=== PATIENT | female | born 1965 | race Caucasian/White ===

== ENCOUNTER → 2024-04-14 06:24 | Day surgery (SDC) | payer MEDICARE, SELFPAY ==
--- NOTE | 2024-04-13 14:18 | PTCARENOTE ---
Abnormal EKG reviewed by Dr. Aguilar, no further action requested.
[2024-04-14] VITALS (8 sets, daily range): BP systolic 104–110; BP diastolic 57–75
[2024-04-14] MEDS: NORMOSOL-R 1000 IV (08:11)
== END ==
LOC: SDS 06:24
PROVIDERS: ATTENDING PHYSICIAN Urology
DX: N31.9 Neuromuscular dysfunction of bladder, unspecified (principal); R33.9 Retention of urine, unspecified
CPT/HCPCS: 51040

== ENCOUNTER 2024-11-19 06:26 | Day surgery (SDC) | payer MEDICARE, OTHER, SELFPAY ==
--- NOTE | 2024-11-18 13:11 | PTCARENOTE ---
Patients unconfirmed 11/16/[address] Walter- no additional interventions required
[2024-11-19 09:01] VITALS: BP 126/66
[2024-11-19] MEDS: NORMOSOL-R/PLASMALYTE-A 1000 IV (09:24)
[2024-11-19 09:31] VITALS: BMI 33.1
[2024-11-19 09:32] VITALS: BMI 33.1
[2024-11-19 09:35] VITALS: BMI 33.1
[2024-11-19 12:39] VITALS: BP 93/60
[2024-11-19 12:40] VITALS: BP 126/66
[2024-11-19 12:45] VITALS: BP 101/63
[2024-11-19 13:00] VITALS: BP 104/64
[2024-11-19 13:10] VITALS: BP 104/67
== END 2024-11-19 14:00 | disposition home or self-care (01) ==
LOC: SDS 06:26
PROVIDERS: ATTENDING PHYSICIAN Urology
DX: N31.9 Neuromuscular dysfunction of bladder, unspecified (principal)
CPT/HCPCS: 51040

== ENCOUNTER 2025-01-17 15:47 | Emergency (ER) | payer MEDICARE, SELFPAY ==
[2025-01-17 15:50] VITALS: BMI 37.6
[2025-01-17 15:57] VITALS: BP 115/81
[2025-01-17 16:00] VITALS: BP 126/81
--- NOTE | 2025-01-17 16:53 | ED.GENMED ---
History of Present Illness
General
Chief Complaint: Catheter/Tube Problem
Source: patient and ambulance crew
Exam Limitations: none
Time Seen by Provider: 01/17/25 16:23
Nursing documentation reviewed up to this point in time: agreed with
History of Present Illness
History of Present Illness:
60-year-old female presents emergency ferment due to dislodged suprapubic Patrick catheter. It is in place due to neurogenic bladder from multiple sclerosis.
Past History
Past History
ED Past Medical History: Renal failure, Other (Multiple sclerosis) and Other (AIDS)
ED Past Surgical History: Urological (Suprapubic Patrick catheter)
Social History
Tobacco: Non-smoker
Alcohol: None
Drug: None
Living: long-term
Review of Systems
Review of Systems
Allergies reviewed?: Yes
All Other Systems: Not applicable
Constitutional: Reports no symptoms
EENT: Reports no symptoms
Respiratory: Reports no symptoms
Cardiac: Reports no symptoms
ABD/GI: Reports no symptoms
: Reports other (Dislodged suprapubic Patrick catheter)
Musculoskeletal: Reports no symptoms
Skin: Reports no symptoms
Neurological: Reports no symptoms
Endocrine: Reports no symptoms
Hematologic/Lymphatic: Reports no symptoms
Psychiatric: Reports no symptoms
Phy Exam
Physical Exam
Physical Exam:
Physical Exam
General: no apparent distress, not acutely ill
Neck: supple. no meningeal signs. normal posterior pharynx
Heart: s1/s2 regular rate and rhythm, no murmur. equal radial
pulses.
HEENT: Pupils equal round reactive to light, EOMI
Lungs: no acute respiratory distress. clear bilaterally
Abdomen/: normal bowel sounds. not tender. no CVAT, suprapubic Patrick catheter in place, and end of catheter protruding from urethra
Neuro: alert and oriented. no focal neurological deficits cranial nerves II through XII intact
Skin: no rash
Psychiatric: well kept. interactive and cooperative
Extremities: no edema. no calf tenderness. negative homans. good distal pulses
Course
Vital Signs
Initial and Last Documented VS:
Initial Vital Signs
Temp Pulse Resp BP Pulse Ox
98.2 F 91 17 115/81 96
01/17/25 15:57 01/17/25 15:57 01/17/25 15:57 01/17/25 15:57 01/17/25 15:57
Last Documented Vital Signs
Temp Pulse Resp BP Pulse Ox
98.2 F 91 17 126/81 98
01/17/25 15:57 01/17/25 15:57 01/17/25 15:57 01/17/25 16:00 01/17/25 16:45
Procedures
Urinary Catheter
Procedure completed by: Dr. Garcia/Nakia Day
Type of urinary catheter: other (Suprapubic)
Catheter size (azeri): 18
Urine description: yellow
Urine output (ml): 50
MDM/Problems Addressed
Differential Diagnosis Includes:
Dysfunctional suprapubic catheter, UTI
MDM/Problems Addressed:
60-year-old female with displaced suprapubic Patrick catheter, replaced in ED. Discussed with Dr. Bañuelos, who recommends replacing.
Chronic conditions affecting care: Neurological disorder and Kidney disease
Acute Exacerbation and/or Progression of Chronic Illness: Neurological disorder and Kidney disease
*Pulse Oximetry
Patient hypoxic: no
*Critical Care Note
Total Time (30-74mins, 75-104mins- exclusive of procedures): Not Applicable
Data Reviewed
Review of Other/Old Records Reveals: Operative Reports (October 2024, replacement of suprapubic Patrick catheter by Dr. Hobson)
Source: records
Patient Management
Social determinants of health affecting care: Living situation and Strong social support
Discussion with other providers: Assessment Technician (Dr. Hobson, urologist)
Escalation/DeEscalation of care consider admission/obs:
Admit not indicated
ED Attending Note
-
Portions of this chart may have been created with voice recognition software.� Occasional wrong word or��sound alike� substitutions may have occurred due to the inherent limitations of voice recognition software.
Discharge Plan
Departure
Patient Disposition: Retirement/SNF
Date of Disposition: 01/17/25
Time of Disposition: 17:01
Patient with high blood pressure during this ER visit?: Yes
Condition: Good
Discharge Problem:
Suprapubic catheter dysfunction
Instructions: How to Care for Your Patrick Catheter, BLOOD PRESSURE
Prescriptions:
No Action
multivitamin Tablet
1 tab PO DAILY
loperamide [Imodium] 2 mg Capsule
2 mg PO Q8H PRN (Reason: diarrhea)
magnesium hydroxide [Milk of Magnesia] 400 mg/5 mL Suspension
30 ml PO PRN PRN (Reason: constipation)
Rx Instructions:
if no BM for 3 days
bisacodyl [Dulcolax (bisacodyl)] 10 mg Suppository
10 mg MI DAILY PRN (Reason: constipation)
Rx Instructions:
If milk of magnesia is ineffective
Fleet Enema 19-7 gram/118 mL Enema
118 ml MI ONCE
Rx Instructions:
If dulcolax ineffective
bumetanide 1 mg Tablet
1 mg PO DAILY
acetaminophen 325 mg Capsule
650 mg PO Q6H PRN (Reason: fever, pain)
Senna Plus 8.6-50 mg Capsule
1 tab-cap PO BID PRN (Reason: constipation)
Activity Restrictions/Additional Instructions:
Follow-up with primary care as needed. Return for any concerns.
Interventions
Interventions:
*Risk Screen - Suicide Last Done: 01/17/25 15:51
*General Assessment Last Done: 01/17/25 15:51
*Neglect/Abuse Screening Last Done: 01/17/25 15:51
*ED- Fall Risk Assessment Last Done: 01/17/25 15:51
*ED COVID-19 Vaccine History Last Done: 01/17/25 15:51
JV-Iqzhar-Elpvahhdjv Assessment Last Done: 01/17/25 15:59
ED-Female Genitourinary Assessment Last Done: 01/17/25 15:59
Discharge Date and Time
Print Language: THAI
--- NOTE | 2025-01-17 16:59 | PTCARENOTE ---
18F 10cc Suprapubic catheter placed by Dr. Garcia and Nakia BAUTISTA. Pt tolerated procedure without difficulty. New stat lock applied. Catheter is draining clear yellow urine. Will continue to monitor.
[2025-01-17 18:20] VITALS: BP 128/76
== END 2025-01-17 18:35 ==
LOC: EMR 15:47
PROVIDERS: EMERGENCY PHYSICIAN Emergency Medicine; FAMILY PHYSICIAN Internal Medicine
DX: T83.020A Displacement of cystostomy catheter, initial encounter (principal); Y73.1 Therapeutic (nonsurgical) and rehabilitative gastroenterology and urology devices associated with adverse incidents; Y84.6 Urinary catheterization as the cause of abnormal reaction of the patient, or of later complication, without mention of misadventure at the time of the procedure; N31.9 Neuromuscular dysfunction of bladder, unspecified
CPT/HCPCS: 99283; 51705

== ENCOUNTER 2025-05-24 15:19 | Inpatient (IN) | payer MEDICARE, OTHER, SELFPAY ==
[2025-05-24] VITALS (8 sets, daily range): BP systolic 117–146; BP diastolic 75–97; BMI 34.7; BMI 32.2
[2025-05-24 11:42] LABS: Hematocrit 40.6 % (37.0-47.0); Hemoglobin 13.7 g/dL (12.0-16.0); Mean Corp Hgb Conc. 33.7 g/dL (33.0-37.0); Mean Corpuscular Volume 86.8 fL (81.0-99.0); Nucleated Red Blood Cells % 0 %; Platelet Count 818 10^3/uL (130-400); Red Cell Dist. Width 13.7 % (11.5-14.5)
[2025-05-24 11:51] LABS: ALT (SGPT) 26 U/L (0-35); AST (SGOT) 21 U/L (14-36); Albumin 3.8 g/dl (3.5-5.0); Alkaline Phosphatase 186 U/L (38-126); Blood Urea Nitrogen 16 mg/dl (7-17); Calcium 8.9 mg/dl (8.4-10.2); Carbon Dioxide 34 mmol/L (22-30); Chloride 96 mmol/L (98-107); Estimated Creatinine Clearance 91 ml/min; Glucose 123 mg/dl (70-99); Potassium 3.4 mmol/L (3.5-5.1); Sodium 137 mmol/L (135-145); Total Protein 7.2 g/dl (6.3-8.2); eGFR > 60.00
[2025-05-24 12:34] LABS: Urine Character Clear (Clear)
[2025-05-24 12:46] LABS: Urine Red Blood Cell 0-2 /HPF (0-2); Urine White Cell 0-2 /HPF (0-5)
--- NOTE | 2025-05-24 12:54 | ED.GENMED ---
History of Present Illness
General
Chief Complaint: Catheter/Tube Problem
Source: patient and family (Brother at bedside)
Time Seen by Provider: 05/24/25 12:17
Nursing documentation reviewed up to this point in time: agreed with
History of Present Illness
History of Present Illness:
60-year-old female with history of MS residing in [facility], cognitive impairment, HTN, neuromuscular dysfunction of bladder, per brother at bedside patient had a suprapubic catheter placed approximately 3 weeks ago, it kept
getting clogged and leaking around it, the area around it became cellulitic and she was started on cefpodoxime proxetil 100 mg twice a day for 7 days starting 05/21 .The red area is spreading so sent here for evaluation.
Past History
Past History
ED Past Medical History: Renal failure, Other (Multiple sclerosis) and Other (AIDS)
ED Past Surgical History: Urological (Suprapubic Patrick catheter)
Social History
Tobacco: Non-smoker
Alcohol: None
Drug: None
Living: care home
Review of Systems
Review of Systems
Allergies reviewed?: Yes
All Other Systems: ROS reviewed and negative except as documented in HPI and ROS
Constitutional: Denies fever
ABD/GI: Denies abdominal pain or nausea
: Reports other (Patrick catheter)
Skin: Reports other (Redness abdominal wall, drainage from previous suprapubic catheter site)
Phy Exam
Physical Exam
Physical Exam:
GENERAL: No acute distress. A&Ox3.
CONSTITUTIONAL: Afebrile.
EYES: clear, conjunctivae normal
ENMT: moist mucus membranes, Pharynx nl
RESPIRATORY: Regular respirations, nonlabored, lungs clear.
CARDIOVASCULAR: Regular rate and rhythm, no murmurs, no rubs.
GI: Soft, nontender, normal BS
MUSCULOSKELETAL: Moves with ease. Well perfused.
SKIN: Warm, dry, pink. Lower abdominal pannus with spreading erythema, in the fold of the pannus is a 2 cm wide hole from previous suprapubic catheter, there is greenish-yellow drainage on the dressing. Immediately surrounding the opening is
darker red erythema.
PSYCH: Normal mood and affect. Well kept, interactive and appropriate
NEUROLOGIC: Awake, alert and oriented. Forgetful, speech clear
Sepsis
Sepsis Screening
Sepsis Assessment: Sepsis Ruled Out
Sepsis Screen
Sepsis Screen: Sepsis Ruled Out
Date: 05/25/25
Time: 11:45
Course
Orders/Labs/Results
Orders:
Orders
05/24/25 Breakfast
Regular
At Your Request: Limited Participation
05/24/25 11:05
Cardiac Monitoring- Treatment ONCE
IV Insert/Care/Rem.- Treatment PRN
05/24/25 11:19
Blood Culture Q20M
[facility] Source: Blood/Venous
Specimen Description:
Comment: Urgent from separate sites. If patient screens positive for possible sepsis
Blood Culture Q20M
[facility] Source: Blood/Venous
Specimen Description:
Comment: Urgent from separate sites. If patient screens positive for possible sepsis
05/24/25 11:20
Complete Blood Count/With Diff Urgent
Comprehensive Metabolic Panel Urgent
05/24/25 11:21
Urinalysis Reflex To Culture Urgent
Date Specimen was Collected: 05/24/25
Time Specimen was Collected: 11:05
Urine Microscopic Reflex Cult Urgent
Urine Culture Urgent
[facility] Source: U
Specimen Description:
Date Specimen was Collected: 05/24/25
Time Specimen was Collected: 11:05
05/24/25 13:19
Vancomycin [Vancocin] 2,000 mg 0.9% Sodium Chloride 500 ml [Nss] 500 ml IV NOW
05/24/25 13:24
Troponin I Urgent
Wound Culture [Wound/Abscess/Other Culture] Urgent
[facility] Source: Abdomen
Specimen Description:
Date Specimen was Collected: 05/24/25
Time Specimen was Collected: 13:21
05/24/25 14:31
UROLOGY CONSULT Routine
Consulting Provider: Schuyler Cisneros
Was physician already notified: Yes
Potassium Chloride [KCl] 20 meq PO NOW STA
05/24/25 14:35
Admit/Transfer Patient As Directed
Co-Sign Provider:
Level of Care: Inpatient admission
Assign to:: Medical/Surgical
Physician / Group: [facility]
Diagnosis: Abdominal Wall Cellulitis
Reason for Hospitalization: IV Abx
Expected length of stay greater than two midnights?: Yes
ELOS- Estimated Length of Stay in days: 3
I certify the patient meets the requirements for IP care: Yes
05/24/25 14:36
PRN Pain Medication Management As Directed
May give lesser potent ordered pain med per pt: Yes
preference::
Protocol:: Medication orders for pain may be administered in a
manner that supports deferring to patient preference
when the pt is:
- Requesting an ordered lesser potent pain medication.
Least to most potent pain medications are defined
as: acetaminophen < NSAID < tramadol < opioids
(morphine, oxycodone, hydromorphone).
- Requesting a lesser dose of the same medication IF
ORDERED.
- Requesting a less intrusive route of administration
if both routes are prescribed by the provider (PO <
IV).
05/24/25 14:37
Code Status As Directed
Resuscitation Status: Full Code
05/24/25 16:52
Acetaminophen [Tylenol] 650 mg PO Q6HPRN PRN mild pain/fever mild pain/fever
VANCOMYCIN Pharmacy to Dose [VANCOCIN Pharmacy to Dose] 1 each Pharmacy To Prepare [Call Pharmacy To Prepare] 0 ml IV PER PROTOCOL
05/24/25 16:52
WOUND/OSTOMY CONSULT Routine
Reason for Consult: suprapubic catheter site wound
Activity As Directed
Activity Level: As Tolerated
Patrick Catheter [Catheter- Indwelling] As Directed
Reason for insertion: Chronic Patrick on Admit
Vital Signs As Directed
Frequency: Per unit guidelines
Weight As Directed
Frequency: Daily
DX Deep Vein Thrombosis Video Routine
05/24/25 17:11
MRSA Screen Routine
[facility] Source: Nose
Specimen Description:
05/24/25 18:00
Cefepime HCl [Maxipime] 1,000 mg IV Q6H
Enoxaparin Sodium [Lovenox] 40 mg SC QPM
Potassium Chloride [KCl] 20 meq PO QPM
05/25/25 07:33
Basic Metabolic Panel IN AM
Complete Blood Count/No Diff IN AM
Hgba1c [Glycohemoglobin (HgbA1c)] IN AM
Magnesium IN AM
05/25/25 08:00
Bumetanide [Bumex] 2 mg PO DAILY
Saccharomyces Boulardii [Florastor] 250 mg PO DAILY
Abnormal Lab Results
05/24/25 05/24/25
11:20 11:21
WBC 11.6 H 10^3/uL
(4.8-10.8)
Plt Count 818 H 10^3/uL
(130-400)
Abs Immat Gran (auto) 0.1 H 10^3/uL
(0-0.05)
Absolute Neuts (auto) 8.2 H 10^3/uL
(1.4-6.5)
Absolute Monos (auto) 1.2 H 10^3/uL
(0.1-0.6)
Immature Gran % 0.7 H %
(0-0.5)
Lymphocytes % 17.6 L %
(20.5-51.1)
Monocytes % 10.0 H %
(1.7-9.3)
Potassium 3.4 L mmol/L
(3.5-5.1)
Chloride 96 L mmol/L
(98-107)
Carbon Dioxide 34 H mmol/L
(22-30)
Glucose 123 H mg/dl
(70-99)
Alkaline Phosphatase 186 H U/L
(38-126)
Ur Occult Blood Reflex 3+ A
(Negative)
Leukocyte Esterase Rfl 1+ A
(Negative)
Urine Bacteria (Reflex) Few A
(Negative)
Urine Albumin (Reflex) 2+ A
(Neg - Trace)
05/24/25 11:20
05/24/25 11:20
Vital Signs
Initial and Last Documented VS:
Initial Vital Signs
Temp Pulse Resp BP Pulse Ox
98.2 F 94 22 128/85 98
05/24/25 10:51 05/24/25 10:51 05/24/25 10:51 05/24/25 10:51 05/24/25 10:51
Last Documented Vital Signs
Temp Pulse Resp BP Pulse Ox
98.3 F 77 18 108/61 98
05/25/25 08:00 05/25/25 08:00 05/25/25 08:00 05/25/25 08:00 05/25/25 08:00
MDM/Problems Addressed
Differential Diagnosis Includes:
Cellulitis abdominal wall, UTI
MDM/Problems Addressed:
60-year-old female with history of MS residing in [facility], cognitive impairment, HTN, ESBL, resistant to macrolides, resistance to aminoglycosides all noted in her antibiotic resistance UTI panel from the care home,
neuromuscular dysfunction of bladder, per brother at bedside patient had a suprapubic catheter placed approximately 3 weeks ago, it kept getting clogged and leaking around it, the area around it became cellulitic and she was started on cefpodoxime
proxetil 100 mg twice a day for 7 days starting 05/21 .The red area is spreading so sent here for evaluation.
Afebrile, NAD
No abdominal tenderness
Open abdominal wound to lower mid abdomen with surrounding erythema/cellulitis
Patrick draining clear bel urine
1:00 PM:
CBC: WBC 11.6, down from 17.55 on 05/18 and her transfer care home records.
CMP: No clinically significant abnormality
UA negative
Plan: Admit: Cellulitis abdominal wall, IV antibiotics
Hospitalist notified of admission
*Pulse Oximetry
SaO2: 95
Oxygen Mode of Delivery: Room air
Patient hypoxic: no
*Critical Care Note
Total Time (30-74mins, 75-104mins- exclusive of procedures): Not Applicable
ED Attending Note
-
Portions of this chart may have been created with voice recognition software.� Occasional wrong word or��sound alike� substitutions may have occurred due to the inherent limitations of voice recognition software.
Discharge Plan
Departure
Patient Disposition: Admit
Date of Disposition: 05/24/25
Time of Disposition: 13:18
Admit to: Med/Surg
Presentation/result/management discussed w/ accepting MD/DO: Hospitalist
Condition: Fair
Discharge Problem:
Abdominal wall cellulitis
Interventions
Interventions:
*Risk Screen - Suicide Last Done: 05/24/25 16:54
*General Assessment Last Done: 05/24/25 10:59
*Neglect/Abuse Screening Last Done: 05/24/25 10:59
*ED- Fall Risk Assessment Last Done: 05/24/25 10:59
*ED COVID-19 Vaccine History Last Done: 05/24/25 16:54
*Nursing Disposition Last Done: 05/24/25 16:42
IH-Kpwugl-Ipzibohqba Assessment Last Done: 05/24/25 11:40
ED-Female Genitourinary Assessment Last Done: 05/24/25 11:32
Discharge Date and Time
Discharge Date/Time: 05/24/25 16:44
[2025-05-24] MEDS: VANCOCIN 540 MG IV (13:37)
[2025-05-24 14:05] LABS: Troponin I < 0.012 ng/ml
--- NOTE | 2025-05-24 14:43 | HPS.HSE ---
Addendum entered and electronically signed by Darleen Marquis MD 05/24/25 17:12:
This is an addendum to H&P written by Diana Miranda on 05/24/2025. �Patient seen and examined independently with PA.
60-year-old female past medical history of normal pressure hydrocephalus, multiple sclerosis, neurogenic bladder, obesity, recent suprapubic catheter placed in October presenting with infection around suprapubic catheter site. �Suprapubic catheter
was removed 3 weeks ago due to infection and patient currently has Patrick catheter.
Started on cefpodoxime on 05/21 with worsening of symptoms.
Vital signs normal. �Labs show leukocytosis. �Potassium 3.4. �Urinalysis unremarkable.
Patient with infection at the site of prior suprapubic catheter placement. �Wound culture, blood cultures, vancomycin/cefepime. �Urology consulted. �Wound care consulted. �Potassium repletion.
Original Note:
Family Physician
-
Family Physician: Jose Owusu
Chief Complaint
-
Abdominal Redness
History of Present Illness
Patient is a 60 y/o female past medical history of NPH, MS, Neurogenic with chronic catheter and chronic lower extremity edema who presents with increased abdominal wall redness and drainage from prior catheter site. Patient had a suprapubic
catheter placed in October. Since that time it has been pulled out several times. More recently the catheter was becoming clogged and had increased drainage from around the catheter. About two weeks ago the suprapubic catheter was removed and a
Patrick cathteter was placed. About three days ago patient was started on oral antibiotics for an infection of the suprapubic catheter site. Despite oral antibiotics symptoms have worsened and she was sent to the [facility] for evaluation.
Patient denies any fevers, sweats or chills.
Medical History
Past Medical History
Past Medical History: Reports Other
Additional Past Medical History:
Normal Pressure Hydrocephalus
Multiple Sclerosis
Neurogenic Bladder s/p Suprapubic Catheter
Chronic Lower Extremity Edema
Obesity due to Excess Calories
Past Surgical History: Reports Other
Additional Past Surgical History:
Suprapubic Catheter
Social History
Tobacco: Non-smoker
Living: Skilled Nursing ([facility])
Family History
Family History: Not pertinent
Allergies / Home Medications
Allergies reflects when Allergies were last updated in [facility].
Home Medications with original date entered in [facility]
Allergy/Medication List:
Allergies
Allergy/AdvReac Type Severity Reaction Status Date / Time
amoxicillin Allergy Hives Verified 01/17/25 15:51
Home Medications
bisacodyl 10 mg rectal suppository (Dulcolax (bisacodyl)) 10 mg SC DAILYPRN PRN constipation 04/09/24
bumetanide 1 mg tablet 2 mg PO DAILY 04/09/24
loperamide 2 mg capsule 2 mg PO Q8HPRN PRN diarrhea 04/09/24
magnesium hydroxide 400 mg/5 mL oral suspension (Milk of Magnesia) 30 ml PO [id number] PRN constipation 04/09/24
sennosides 8.6 mg-docusate sodium 50 mg capsule (Senna Plus) 1 tab-cap PO BIDPRN PRN constipation 04/09/24
sodium phosphates 19 gram-7 gram/118 mL enema (Fleet Enema) 118 ml SC DAILYPRN PRN constipation 04/09/24
Saccharomyces boulardii 250 mg capsule (Florastor) 250 mg PO DAILY 05/24/25
acetaminophen 325 mg tablet (Tylenol) 650 mg PO Q6HPRN PRN mild pain 05/24/25
cefpodoxime 100 mg tablet 100 mg PO BID 05/24/25
potassium chloride 20 mEq tablet,extended release 20 meq PO QPM 05/24/25
Review of Systems
-
A 12 point ROS was completed and negative except as noted: Yes
Constitutional: Denies Fever or Chills
Respiratory: Denies Cough or Trouble Breathing
Cardiac: Denies Chest Pain or Palpitations
Physical Exam
Vital Signs
Vital Signs
Temp Pulse Resp BP Pulse Ox
98.2 F 98 23 117/92 97
05/24/25 10:51 05/24/25 13:30 05/24/25 13:30 05/24/25 13:00 05/24/25 13:30
Physical Exam
General: Comfortable and Conversant
HEENT: Anicteric and Moist mucous membranes
Respiratory: Clear and Non Labored Respirations
Cardiac: S1/S2 and Regular Rhythm; No Tachycardia
GI: Soft and Non Tender
Rectal: Deferred by Provider
Genito-urinary: Clear Urine, Patrick and Other (Large suprapubic catheter site with foul smelling drainage noted)
Musculoskeletal: No Clubbing and No Cyanosis
Skin: Other (Mild/ Moderate erythema of lower abdominal wall )
Neuro: Awake, Alert and Oriented
Psych: Calm
Laboratory Results
-
05/24/25 11:20
05/24/25 11:20
Laboratory Results
Total Bilirubin 0.6 mg/dl (0.2-1.3) 05/24/25 11:20
AST 21 U/L (14-36) 05/24/25 11:20
ALT 26 U/L (0-35) 05/24/25 11:20
Alkaline Phosphatase 186 U/L (38-126) H 05/24/25 11:20
Troponin I < 0.012 ng/ml 05/24/25 13:24
Data Reviewed
-
Lab Data: Labs Reviewed by me
Old Records: Reviewed
Impression/Plan
-
Abdominal Wall Cellulitis secondary to Non-Healing/Infected Suprapubic Catheter Site
-Await wound culture and blood culture
-Continue vancomycin and cefepime
-Consult wound care
Neurogenic Bladder
-Suprapubic catheter has been removed, and patient now with Patrick catheter
-Consult Urology
Multiple Sclerosis
-Patient resides at a longterm
-She receives an infusion at [facility] every six months (Last treatment February 23) though brother does not know the name of the medications
Chronic Lower Extremity Edema
-Continue Bumex and potassium supplement
DVT proph: Lovenox
Code Status: Full Code
[2025-05-24] MEDS: KCL 20 MEQ PO ×2 (14:54→18:25)
--- NOTE | 2025-05-24 17:05 | PTCARENOTE ---
05/24- Patient transferred and oriented to unit without issue. AAOX3 but slowed speech, forgetful. MedSurg. Suprapubic open wound malodorous, deep with burrowing, surrounding erythema and warmth to touch, actively draining serous and purulent
drainage. Cleansed with NSS; packed with sterile gauze and covered with ABD for time being until [facility] sanitarian inspector. Patient denies any current needs at this time.
--- NOTE | 2025-05-24 18:04 | W.PN.URO.CBU ---
Today's Communication / Plan
-
await ct scan but for now continured care
Assessment / Plan
-
area abscess r/out intraabdominal or pelvic extent.Ordered ct scan and continued packing and wound care and iv abs
Diagnosis
-
Date of Service: May 24, 2025
-
Patient Diagnosis:suprapbic abscess at site of sp tube remved
Post Op Day:
Subjective
-
no fevr chills no n/v
Objective
-
Vital Signs
Temp Pulse Resp BP Pulse Ox
97.2 F 99 20 119/82 99
05/24/25 16:55 05/24/25 16:55 05/24/25 16:55 05/24/25 16:55 05/24/25 17:05
Intake and Output
05/23/25 05/24/25 05/25/25
06:59 06:59 06:59
Output Total 200 / 200
Balance -200 / -200
Output:
Urine, Patrick 200 / 200
Laboratory Results
05/24/25 11:20
05/24/25 11:20
Review of Systems
-
Abdomen/GI: Other (foul smelling puriemt drainage from sp tube site)
: Difficulty Voiding
Physical Exam
-
General - well developed, well nourished, no acute distressnon txic
Chest - clear bilaterally
Abdomen - soft, non-tender, positive bowel sounds, no CVAT, no incisional pain or distentionbut finfger depth abscess cavity vcannot palpate abd or pelvic conthenst fascal intact to digital exam
Genitalia - normal
Rectal - normal
Skin - warm & dry with no rash
Neuro - AOx3, no motor deficits
Extremities - no clubbing, no cyanosis, no edema
Incision - clean, dry
Dressing - clean, dry, intact
Care Review
Data Reviewed
Discussed with: Nursing
--- NOTE | 2025-05-24 18:04 | PHA.VAN.IN ---
Assessment
- Assessment
Renal Function: Appears similar to baseline
Concomitant Antimicrobials: CEFEPIME
AUC Dosing Plan
- Dosing Variables
Dosing Weight (kg): 94.5
Dosing CrCl (ml/min): 89
Vd coefficient (L/kg): 0.7
- Empiric Dosing
Initial / Loading Dose: 2000 MG IV ~ 1330
Maintenance Regimen: 1250 MG IV Q12H
Estimated AUC (mcg*h/mL): 511
Estimated Peak (mcg*h/mL): 31
Estimated Trough (mcg/ml): 13.6
Estimated Half Life (H): 8.9
- Monitoring
No levels ordered at this time: Consider levels in a few days
Pharmacokinetics Vancomycin I
- -
Patient Age: 60
Patient Sex: Female
Vancomycin Day #: 1
Indication: Skin And Soft Tissue
Requesting Provider: Enrike De Jesus
Pertinent Antimicrobial Allergies:
Amoxicillin W. Hives reaction occured greater than 10 years ago.
Height / Weight:
Height 5 ft 7.5 in
Actual Weight 94.5 kg
Pertinent Past Medical History: patient had a suprapubic catheter placed approximately 3 weeks ago.
- Vital Signs / Lab Results
Temp Pulse Resp BP Pulse Ox
97.2 F 99 20 119/82 99
05/24/25 16:55 05/24/25 16:55 05/24/25 16:55 05/24/25 16:55 05/24/25 17:05
Lab Results - Hematology
05/24/25
11:20
WBC 11.6 H
Lab Results - Chemistry
05/24/25
11:20
BUN 16
Creatinine 0.8
Estimated Creat Clear 91
Albumin 3.8
Lab Results - Urine
05/24/25
11:21
Urine Nitrite (Reflex) Negative
Leukocyte Esterase Rfl 1+ A
Urine WBC (Reflex) 0-2
Ur Squamous Epith Cells 3-5
Urine Bacteria (Reflex) Few A
Microbiology Results
05/24/25 13:24 Gram Stain - Preliminary
Abdomen
[2025-05-24] MEDS: LOVENOX 40 MG SC (18:25)
[2025-05-24] MEDS: STERILE WATER FOR INJECTION 10 ML IV ×2 (18:25→23:00)
[2025-05-24] MEDS: MAXIPIME 1000 MG IV ×2 (18:25→23:00)
[2025-05-25] MEDS: MAXIPIME 1000 MG IV ×3 (05:06→17:23)
[2025-05-25] MEDS: VANCOCIN 275 MG IV ×2 (05:07→17:23)
[2025-05-25] MEDS: STERILE WATER FOR INJECTION 10 ML IV ×3 (05:07→17:23)
--- NOTE | 2025-05-25 07:22 | W.PN.HOSP.TC ---
Today's Communication/Plan
-
Continue antibiotics, wound care
See plan
Assessment / Plan
Assessment / Plan
Physical Exam
General: Comfortable and Conversant
HEENT: Normocephalic. Moist mucous membranes
Respiratory: Clear to Auscultation Bilaterally
Cardiac: S1/S2 and Regular Rhythm
GI: Soft and Non Tender. Positive bowel sounds. Deep wound with surrounding erythema and induration in the lower abdomen.
Musculoskeletal: No Cyanosis
Neuro: Awake, Alert and Oriented
Psych: Calm
Assessment/Plan
ANGELINA: 60-year-old female with past medical history of normal pressure hydrocephalus, multiple sclerosis, neurogenic bladder with chronic urinary catheter, obesity, chronic lower extremity edema and recent suprapubic catheter placed in October 2024
presenting with signs of infection around prior suprapubic catheter site. More recently the catheter was becoming clogged and had increased drainage from around the catheter. Suprapubic catheter was removed several times and also 3 weeks prior to
presentation due to infection and patient on admission was noted to have a Patrick catheter. Started on cefpodoxime outpatient on 05/21 with worsening of symptoms. Vital signs normal. Labs show leukocytosis. Potassium 3.4. Urinalysis unremarkable.
Patient with infection at the site of prior suprapubic catheter placement. Wound culture, blood cultures, vancomycin/cefepime. Urology consulted. Wound care consulted. Potassium repletion.
Abdominal Wall Cellulitis with Deep Tunneling Wound secondary to Non-Healing/Infected Suprapubic Catheter Site
Leukocytosis
-Await wound culture and blood culture
-Continue vancomycin and cefepime
-Consult wound care
-Given nature of lower abdominal wound -- deep wound with tunneling into the abdominal wall, and surrounding induration and erythema, consulted Infectious Disease
Neurogenic Bladder
-Suprapubic catheter has been removed, and patient now with Patrick catheter
-Consult Urology -- appreciate urology
Hypokalemia
-Resolved
-Monitor BMP
Thrombocytosis
-Suspected secondary from infection
-Improving with antibiotics
Multiple Sclerosis
-Patient resides at a residential
-She receives an infusion at [facility] every six months (Last treatment February 23) though brother does not know the name of the medications
Chronic Lower Extremity Edema
-Continue Bumex and potassium supplement
DVT prophylaxis: Lovenox
Code Status: Full Code
Anticipated Discharge: > 48 hours
Subjective/Interval History
-
Date of Service: May 25, 2025
Patient was seen and examined. She denied any new symptoms or complaints.
Objective Data
-
Labs:
Laboratory Results
05/25/25
06:00
WBC Pending
Hgb Pending
Hct Pending
Plt Count Pending
Sodium Pending
Potassium Pending
Chloride Pending
Carbon Dioxide Pending
BUN Pending
Creatinine Pending
Glucose Pending
Calcium Pending
Vital Signs:
Vital Signs
Temp Pulse Resp BP Pulse Ox
97.0 F 96 18 121/75 97
05/24/25 23:25 05/24/25 23:25 05/24/25 23:25 05/24/25 23:25 05/24/25 23:25
I&O
05/24/25 05/25/25 05/26/25
06:59 06:59 06:59
Output Total 1000 / 1000
Balance -1000 / -1000
[2025-05-25 08:00] VITALS: BP 108/61
[2025-05-25] MEDS: BUMEX 2 MG PO (08:08)
[2025-05-25] MEDS: FLORASTOR 250 MG PO (08:08)
[2025-05-25 08:14] LABS: Hematocrit 39.8 % (37.0-47.0); Hemoglobin 13.2 g/dL (12.0-16.0); Mean Corp Hgb Conc. 33.2 g/dL (33.0-37.0); Mean Corpuscular Volume 87.9 fL (81.0-99.0); Platelet Count 760 10^3/uL (130-400); Red Cell Dist. Width 13.8 % (11.5-14.5)
--- NOTE | 2025-05-25 08:20 | PHA.VAN.FU ---
Vancomycin Assessment / Plan
- Assessment
Renal Function: Stable
WBC's are: Trending Up
In the past 24 hrs, patient has been: Afebrile
Concomitant Antimicrobials: cefepime
Received IV contrast 05/24
- Dosing Plan
Continue: Vanc 1250mg Q12H
- Monitoring Plan
No level(s) ordered at this time: consider levels in next few days
- Follow Up
Pharmacy will continue to follow.
Vancomycin Follow UP
- -
Patient Age: 60
Patient Sex: Female
Vancomycin Day #: 2
Indication: Skin And Soft Tissue
Requesting Provider: Enrike De Jesus
Pertinent Antimicrobial Allergies:
Amoxicillin - hives reaction occured greater than 10 years ago
Height / Weight:
Height 5 ft 7.5 in
Actual Weight 94.5 kg
Pertinent Past Medical History: BMI ~32, MS, suprapubic catheter
- Vital Signs / Lab Results
Temp Pulse Resp BP Pulse Ox
97.0 F 96 18 121/75 97
05/24/25 23:25 05/24/25 23:25 05/24/25 23:25 05/24/25 23:25 05/24/25 23:25
Lab Results - Hematology
05/24/25 05/25/25
11:20 07:33
WBC 11.6 H 12.7 H
Lab Results - Chemistry
05/24/25
11:20
BUN 16
Creatinine 0.8
Estimated Creat Clear 91
Albumin 3.8
Lab Results - Urine
05/24/25
11:21
Urine Nitrite (Reflex) Negative
Leukocyte Esterase Rfl 1+ A
Ur Squamous Epith Cells 3-5
Microbiology Results
05/24/25 13:24 Gram Stain - Preliminary
Abdomen
[2025-05-25 08:37] LABS: Blood Urea Nitrogen 20 mg/dl (7-17); Calcium 9.4 mg/dl (8.4-10.2); Carbon Dioxide 34 mmol/L (22-30); Chloride 100 mmol/L (98-107); Estimated Creatinine Clearance 89 ml/min; Glucose 103 mg/dl (70-99); Magnesium 2.2 mg/dl (1.6-2.3); Potassium 4.0 mmol/L (3.5-5.1); Sodium 138 mmol/L (135-145); eGFR > 60.00
[2025-05-25 10:33] LABS: Glycohemoglobin (HgbA1c) 5.5 % (4.0-5.6)
--- NOTE | 2025-05-25 11:47 | WOUNDNOTE ---
ABDOMEN WITH FLASH LIGHT
--- NOTE | 2025-05-25 11:47 | WOUNDNOTE ---
ABDOMEN WITH PHOTO FLASH
--- NOTE | 2025-05-25 11:50 | WOUNDNOTE ---
[facility] RN note: Patient admitted with cellulitis of the abdominal wall.
See H&P for complete history. [facility].
PMH: 60-year-old female past medical history of normal pressure hydrocephalus, multiple sclerosis, neurogenic bladder, obesity, recent suprapubic catheter placed in October presenting with infection around suprapubic catheter site. �Suprapubic
catheter was removed 3 weeks ago due to infection and patient currently has Patrick catheter.
Wound Location and type/assessment: Patient admitted with: old suprapubic catheter site full thickness ulcer that undermines at base and has 4cm deep tunnel medially. Redness and induration medially to open wound. Patient assessed along with nurse
Amanda and Dr. Allan. Dr. Cisneros following, reviewed notes, patient for CT scan, plan pending results. Wound culture pending. Patient turned with assist of nurse and patient. L buttock with stage 1 PI vs shearing, non blanchable patch of
redness. L ischium with healed ulcer now pale scar. L inner buttock with stage 2 PI vs MASD. Patrick catheter in use. Heels are blanchable red and intact.
Appetite:Good, encourage protein in diet.
Pressure redistribution devices in place: On [employer] bed, asked nurse to apply air overlay to bed when able. Pillow under calves, air chair cushion provided.
Plan: Saline moistened gauze packed into wound, folded dry gauze then silicone foam applied. Recommend daily dressing changes until further plans per Dr. Cisneros. Confirmed orders with hospitalist and updated nurse.
Updated care plan and will follow along peripherally and assist as needed.
Note to case management of equipment requested for discharge: Air mattress
Recommend follow up at wound care center upon discharge.
--- NOTE | 2025-05-25 13:59 | CON.ID ---
Consultation
-
Date/Time Consultation Requested: 05/25/2025 1106
Date/Time Consultation Performed: 05/25/2025 1400
Requesting Provider: Dr. Allan
Performing Provider: Dr. Harper
Reason for Consultation: Lower abdominal SSTI
Chief Complaint / Past History
History of Present Illness
Carlota Macdonald is a 60-year-old female being evaluated at the request of Dr. Allan regarding a lower abdominal infection. History is obtained from chart review, along with patient interview.
The patient has an underlying history of normal pressure hydrocephalus, MS and neurogenic bladder. A suprapubic catheter was placed in November 24, and per reviewed history, since that time and has been pulled out several times. Additionally, the
catheter had become clogged, with increasing drainage around the catheter. Approximately 2 weeks ago the suprapubic catheter was removed, with reinsertion of the Patrick catheter. The suprapubic catheter site became increasingly red. Despite a
course of cefpodoxime, erythema continued to spread, and she presented to the emergency room for further evaluation.
Present, patient denies specific complaints. She denies any fevers or chills. She denies any abdominal discomfort, including around the prior suprapubic cath site.
Past History
Additional Past Medical History:
Normal pressure hydrocephalus
Multiple sclerosis
Neurogenic bladder
Chronic catheter
Additional Past Surgical History:
Suprapubic catheter placement
Allergy History:
amoxicillin Allergy (Verified 01/17/25 15:51)
Hives
Medications Reviewed: Yes
Current Antibiotics:
Cefepime 1 gm IV q.6 hours
Vancomycin (dosing per pharmacy)
Social History
Tobacco: Non-Smoker
Alcohol: None
Drug: None
Personal: Single
Employment: Not Employed
Family History
Family History: Unable to Obtain
Review of Systems
Vital Signs
Temp Pulse Resp BP Pulse Ox
98.3 F 77 18 108/61 98
05/25/25 08:00 05/25/25 08:00 05/25/25 08:00 05/25/25 08:00 05/25/25 08:00
Physical Exam
Physical Exam
Constitutional: No Acute Distress, Comfortable and Non-toxic
Eyes: No Conjunctival Hemorrhage and Sclera Anicteric
Oral: No Thrush and No Ulcers
Cardiovascular: Regular Rate and S1/S2; Negative S3/S4
Pulmonary: Clear; Negative Wheezes, Rales or Rhonchi
Gastrointestinal: Soft, Non Tender, Non Distended and Normal Bowel Sounds
Genito-Urinary: Patrick, Clear Urine and Other (Prior suprapubic catheter site packed. Positive periwound erythema.)
Extremities: Edema; Negative Cyanosis or Erythema
Skin: Warm and Dry; Negative Rash
Neurological: Awake and Alert
Psychological: Confused
Lab / Diagnostic Study Results
05/25/25 07:33
05/25/25 07:33
Abs Immat Gran (auto) 0.1 10^3/uL (0-0.05) H 05/24/25 11:20
Absolute Neuts (auto) 8.2 10^3/uL (1.4-6.5) H 05/24/25 11:20
Absolute Lymphs (auto) 2.0 10^3/uL (1.2-3.4) 05/24/25 11:20
Absolute Monos (auto) 1.2 10^3/uL (0.1-0.6) H 05/24/25 11:20
Absolute Basos (auto) 0.0 10^3/uL (0-0.2) 05/24/25 11:20
Immature Gran % 0.7 % (0-0.5) H 05/24/25 11:20
Neutrophils % 70.3 % (42.2-75.2) 05/24/25 11:20
Lymphocytes % 17.6 % (20.5-51.1) L 05/24/25 11:20
Monocytes % 10.0 % (1.7-9.3) H 05/24/25 11:20
Eosinophils % 1.1 % (0-6) 05/24/25 11:20
Basophils % 0.3 % (0-2) 05/24/25 11:20
Ur Squamous Epith Cells 3-5 /LPF (Few) 05/24/25 11:21
Microbiology Results
Micro:
05/24/25 11:21 Urine Culture - Final
Urine NO GROWTH
05/24/25 11:19 Blood Culture - Preliminary
Blood/Venous No Growth in 24 hours- Final report to follow
05/24/25 11:19 Blood Culture - Preliminary
Blood/Venous No Growth in 24 hours- Final report to follow
05/24/25 13:24 Wound Culture - Preliminary
Abdomen Gram Stain - Preliminary
05/24/25 17:11 MRSA Screen - Pending
Nose
Imaging:
05/24/2025 CT pelvis with contrast: Thin soft tissue tract extending from the anterosuperior aspect of the urinary bladder anterior pelvic wall. No evidence for air or fluid within this tract. There is a small tract from the anterior pelvic wall to
the anterior skin surface, containing a small amount of air and fluid. This would suggest infection with thin fistulous tract, with draining wound, as suggested in the clinical history. There is also air and stranding soft tissue density extending
toward the right within the anterior pelvic wall, findings compatible cellulitis. No evidence for drainable collection at this time. Distention of the rectum with stool, transverse dimension of 8.4 cm. Mild stranding of the fat surrounding the
rectum suggesting stercoral colitis. No evidence for perforation.
Assessment / Plan
Suprapubic catheter tract site infection
Lower abdomen SSTI
Leukocytosis
Thrombocytosis
Normal pressure hydrocephalus
Multiple sclerosis
Neurogenic bladder
Chronic catheter
Recommendations:
Continue with empiric cefepime and vancomycin.
Await suprapubic catheter site culture to guide further antimicrobial selection and potential de-escalation.
Follow-up pending blood cultures.
Monitor white count and temperature curve.
Further recommendations as additional data is returned.
--- NOTE | 2025-05-25 15:39 | CM ---
CM reviewed chart, patient seen bedside, initial assessment completed. Patient LTC resident [facility]. Patient reports she is receiving therapy there, is mostly WC bound. PCP Jose Owusu, pharmacy [facility].
CM spoke with liaison from [facility], confirmed patient is LTC, awaiting patients PLOF. Referral placed in [facility]. CM will continue to follow for all discharge planning needs.
Plan; return to [facility] when stable
[2025-05-25 16:00] VITALS: BP 117/86
--- NOTE | 2025-05-25 16:05 | W.PN.URO.CBU ---
Today's Communication / Plan
-
no new changes continue local wound care
Assessment / Plan
-
suprapubic abscess no obvious intaabdomial or pelvic involvement . continue packing and wound care and iv abs
Diagnosis
-
Date of Service: May 25, 2025
-
Patient Diagnosis:
Post Op Day:
Patient Diagnosis:suprapbic abscess at site of sp tube remved
Post Op Day:
Subjective
-
NO SYSTEMIC COMPLAINTS NO FEVER CHILLS
Objective
-
Vital Signs
Temp Pulse Resp BP Pulse Ox
98.3 F 77 18 108/61 98
05/25/25 08:00 05/25/25 08:00 05/25/25 08:00 05/25/25 08:00 05/25/25 08:00
Intake and Output
05/24/25 05/25/25 05/26/25
06:59 06:59 06:59
Output Total 1000 / 1000
Balance -1000 / -1000
Output:
Urine, Patrick 1000 / 1000
Laboratory Results
05/25/25 07:33
05/25/25 07:33
Review of Systems
-
Abdomen/GI: Other (LESS DRAINAGE FROM WOUND)
: Difficulty Voiding
Physical Exam
-
General - well developed, well nourished, no acute distress
Chest - clear bilaterally
Abdomen - soft, non-tender, positive bowel sounds, no CVAT, no incisional pain or distention less swelling packing still deep
Genitalia - normal
Rectal - normal
Skin - warm & dry with no rash
Neuro - AOx3, no motor deficits
Extremities - no clubbing, no cyanosis, no edema
Incision - clean, dry
Dressing - clean, dry, intact
Care Review
Data Reviewed
Discussed with: Nursing
CT Scan: Image Pers Reviewed
[2025-05-25] MEDS: LOVENOX 40 MG SC (17:22)
[2025-05-25] MEDS: KCL 20 MEQ PO (17:23)
--- NOTE | 2025-05-25 18:26 | VATNOTE ---
called to restart IV site due to Vancomycin infiltrate; red and size of orange; ice applied; pt denies pain.
[2025-05-25 23:17] VITALS: BP 112/74
[2025-05-26] MEDS: MAXIPIME 1000 MG IV ×5 (00:17→23:14)
[2025-05-26] MEDS: STERILE WATER FOR INJECTION 10 ML IV ×5 (00:18→23:14)
[2025-05-26] MEDS: VANCOCIN 275 MG IV ×2 (05:51→17:09)
[2025-05-26 07:45] VITALS: BP 108/71
[2025-05-26] MEDS: BUMEX 2 MG PO (07:45)
[2025-05-26] MEDS: FLORASTOR 250 MG PO (07:45)
[2025-05-26 08:39] LABS: Hematocrit 37.0 % (37.0-47.0); Hemoglobin 12.2 g/dL (12.0-16.0); Mean Corp Hgb Conc. 33.0 g/dL (33.0-37.0); Mean Corpuscular Volume 88.9 fL (81.0-99.0); Platelet Count 766 10^3/uL (130-400); Red Cell Dist. Width 13.9 % (11.5-14.5)
--- NOTE | 2025-05-26 08:57 | WOUNDNOTE ---
LORRAINE RN NOTE: Followed Ddr. Amelia's note: suprapubic abscess no obvious intra abdominal or pelvic involvement . continue packing and wound care and iv abs. Updated work list and will follow as needed.
[2025-05-26 09:06] LABS: Blood Urea Nitrogen 21 mg/dl (7-17); Calcium 8.9 mg/dl (8.4-10.2); Carbon Dioxide 33 mmol/L (22-30); Chloride 99 mmol/L (98-107); Estimated Creatinine Clearance 89 ml/min; Glucose 103 mg/dl (70-99); Potassium 4.1 mmol/L (3.5-5.1); Sodium 135 mmol/L (135-145); eGFR > 60.00
--- NOTE | 2025-05-26 10:45 | VATNOTE ---
Patient with reported infiltrate to left antecubital area. Redness noted; no drainage, patient denies pain.
--- NOTE | 2025-05-26 12:37 | CM ---
Following up on patient. MD team not sure when patient is ready.
KOBE Gutierrez met with patient to inform her that we are following the MD team on her discharge, she understood.
IMM not provided today
Plan: Return to [facility]
--- NOTE | 2025-05-26 13:52 | W.PN.ID1 ---
Date of Service
Date of Service: May 26, 2025
Today's Communication
Continue antibiotics.
Assessment / Plan
Suprapubic catheter tract site infection
Lower abdomen SSTI
Leukocytosis
Thrombocytosis
Normal pressure hydrocephalus
Multiple sclerosis
Neurogenic bladder
Chronic catheter
Recommendations:
Cultures reviewed, and revealed polymicrobial growth of Proteus, E. coli, Enterococcus and an additional gram-negative werner.
Continue with empiric cefepime and vancomycin.
Await final identification and susceptibility data to guide further antimicrobial selection and potential de-escalation.
Blood cultures without growth to date.
Monitor white count and temperature curve.
Continue with local care to the area.
����������������������������������������������������������
Chief Complaint
-: Other (lower abdominal wound)
Subjective / Review of Systems
Patient seen and examined. Denies specific complaints at present. No fevers or chills. Denies abdominal discomfort.
Vital Signs / Physical Exam
Vital Signs
Vital Signs
Temp Pulse Resp BP Pulse Ox
97.4 F 61 16 108/71 98
05/26/25 07:45 05/26/25 07:45 05/26/25 07:45 05/26/25 07:45 05/26/25 07:45
Physical Exam
Constitutional: No Acute Distress, Comfortable and Non-toxic
Eyes: Sclera Anicteric
Cardiovascular: S1/S2; Negative S3/S4
Pulmonary: Non Labored
Gastrointestinal: Non Distended
Wound: Other (Suprapubic wound dressed. Packing in place. Little to no periwound erythema.)
Neurological: Awake and Alert
Psychological: Calm
Objective Data
Lab Data
Lab Results
05/26/25 07:19
05/26/25 07:19
Estimated Creat Clear 89 ml/min 05/26/25 07:19
Total Bilirubin 0.6 mg/dl (0.2-1.3) 05/24/25 11:20
AST 21 U/L (14-36) 05/24/25 11:20
ALT 26 U/L (0-35) 05/24/25 11:20
Alkaline Phosphatase 186 U/L (38-126) H 05/24/25 11:20
Most recent labs reviewed.
Micro Results:
05/24/25 13:24 Wound Culture - Final
Abdomen Proteus mirabilis
Escherichia coli
Gram negative bacilli
Enterococcus species
Gram Stain - Final
05/24/25 11:19 Blood Culture - Preliminary
Blood/Venous No Growth in 48 hours- Final report to follow
05/24/25 11:19 Blood Culture - Preliminary
Blood/Venous No Growth in 48 hours- Final report to follow
05/24/25 17:11 MRSA Screen - Final
Nose No Methicillin Resistant Staphylococcus aureus isolated.
05/24/25 11:21 Urine Culture - Final
Urine NO GROWTH
Imaging:
05/24/2025 CT pelvis with contrast: Thin soft tissue tract extending from the anterosuperior aspect of the urinary bladder anterior pelvic wall. No evidence for air or fluid within this tract. There is a small tract from the anterior pelvic wall to
the anterior skin surface, containing a small amount of air and fluid. This would suggest infection with thin fistulous tract, with draining wound, as suggested in the clinical history. There is also air and stranding soft tissue density extending
toward the right within the anterior pelvic wall, findings compatible cellulitis. No evidence for drainable collection at this time. Distention of the rectum with stool, transverse dimension of 8.4 cm. Mild stranding of the fat surrounding the
rectum suggesting stercoral colitis. No evidence for perforation.
[2025-05-26 15:18] VITALS: BP 123/91
--- NOTE | 2025-05-26 15:26 | W.PN.HOSP.TC ---
Today's Communication/Plan
-
Continue antibiotics
See plan
Assessment / Plan
Assessment / Plan
Physical Exam
General: Comfortable and Conversant
HEENT: Normocephalic. Moist mucous membranes
Respiratory: Clear to Auscultation Bilaterally
Cardiac: S1/S2 and Regular Rhythm
GI: Soft and Non Tender. Positive bowel sounds. Deep wound with surrounding erythema and induration in the lower abdomen.
Musculoskeletal: No Cyanosis
Neuro: Awake, Alert and Oriented
Psych: Calm
Assessment/Plan
ANGELINA: 60-year-old female with past medical history of normal pressure hydrocephalus, multiple sclerosis, neurogenic bladder with chronic urinary catheter, obesity, chronic lower extremity edema and recent suprapubic catheter placed in October 2024
presenting with signs of infection around prior suprapubic catheter site. More recently the catheter was becoming clogged and had increased drainage from around the catheter. Suprapubic catheter was removed several times and also 3 weeks prior to
presentation due to infection and patient on admission was noted to have a Patrick catheter. Started on cefpodoxime outpatient on 05/21 with worsening of symptoms. Vital signs normal. Labs show leukocytosis. Potassium 3.4. Urinalysis unremarkable.
Patient with infection at the site of prior suprapubic catheter placement. Wound culture, blood cultures, vancomycin/cefepime. Urology consulted. Wound care consulted. Potassium repletion.
Abdominal Wall Cellulitis with Deep Tunneling Wound secondary to Non-Healing/Infected Suprapubic Catheter Site
Leukocytosis
-Wound culture growing: Proteus mirabilis, Escherichia coli, 3rd Gram negative bacilli and Enterococcus species
-Blood cultures with no growth to date
-MRSA negative
-Continue vancomycin and cefepime for now, appreciate ID
-Consult wound care
-Given nature of lower abdominal wound -- deep wound with tunneling into the abdominal wall, and surrounding induration and erythema, for this reason, consulted Infectious Disease
Neurogenic Bladder
-Suprapubic catheter has been removed, and patient now with Patrick catheter
-Consult Urology -- appreciate urology
Hypokalemia
-Resolved
-Monitor BMP
Thrombocytosis
-Suspected secondary from infection
-If significant thrombocytosis continues to persist, will consult hematology
-Improving with antibiotics
Multiple Sclerosis
-Patient resides at a [facility]
-She receives an infusion at [place] every six months (Last treatment February 23) though brother does not know the name of the medications
Chronic Lower Extremity Edema
-Continue Bumex and potassium supplement
DVT prophylaxis: Lovenox
Code Status: Full Code
Anticipated Discharge: > 48 hours
Subjective/Interval History
-
Date of Service: May 26, 2025
Patient was seen and examined. She denied any new symptoms or complaints.
Objective Data
-
Labs:
Laboratory Results
05/26/25
07:19
WBC 10.4
Hgb 12.2
Hct 37.0
Plt Count 766 H
Sodium 135
Potassium 4.1
Chloride 99
Carbon Dioxide 33 H
BUN 21 H
Creatinine 0.8
Glucose 103 H
Calcium 8.9
Vital Signs:
Vital Signs
Temp Pulse Resp BP Pulse Ox
97.9 F 90 18 123/91 98
05/26/25 15:18 05/26/25 15:18 05/26/25 15:18 05/26/25 15:18 05/26/25 15:18
I&O
05/25/25 05/26/25 05/27/25
06:59 06:59 06:59
Intake Total 1440 / 1440
Output Total 1000 / 1000 1500 / 1500
Balance -1000 / -1000 -60 / -60
--- NOTE | 2025-05-26 15:34 | PN.CDI ---
CDI
- -
CDI:
Physician Documentation Request
Admit Date: 05/24/25 15:19
Dear Doctor Sanjana,
Please review the following and provide your response in the progress notes.
Clinical Indicators:
Pt admitted with Abdominal Wall Cellulitis with Deep Tunneling Wound secondary to Non-Healing/Infected Suprapubic Catheter Site.
05/25 WO RN: ' Patient assessed along with nurse Amanda and Dr. Allan. Dr. Cisneros following, reviewed notes, patient for CT scan, plan pending results. Wound culture pending. Patient turned with assist of nurse and patient. L buttock with stage
1 PI vs shearing, non blanchable patch of redness. L ischium with healed ulcer now pale scar. L inner buttock with stage 2 PI vs MASD.'
Physician documentation of the type and location of wounds is required for compliant documentation. Based on the above clinical findings and your assessment, please provide the following in your progress note:
1. Location of the ulcer/wound, including laterality.
2. Type (etiology) of ulcer/wound:
Left buttock pressure injury POA
Left buttock non-pressure injury POA
Other
Use of terms such as suspected, likely, concern for, or probable (associated with a specific diagnosis that is being evaluated, monitored, or treated as if it exists) are acceptable and can be coded in the inpatient setting, when documented at the
time of discharge.
Thank you,
Blanca Zamora RN, BSN
CDI Specialist
[place] [facility]
Please use your independent medical judgment in providing your response.
*Source: National Pressure Ulcer Advisory Panel (NPUAP)
--- NOTE | 2025-05-26 15:42 | PN.CDI ---
CDI
- -
CDI:
Physician Documentation Request
Admit Date: 05/24/25 15:19
Dear Doctor Levi,
Please review the following and provide your response in the progress notes.
Clinical Indicators:
Pt admitted with Abdominal Wall Cellulitis with Deep Tunneling Wound secondary to Non-Healing/Infected Suprapubic Catheter Site.
Selected Entries
05/24/25
11:45 05/24/25
12:45 05/24/25
15:00
Pulse 106 96 117
Resp Rate 27
Laboratory Tests
05/24/25 05/25/25
11:20 07:33
WBC 11.6 H 12.7 H
Please clarify which of the following most accurately describes the status of the patient's infection:
Sepsis
- Systemic manifestations of infection, with 2 or more SIRS criteria which include:
- Fever >100.9 degrees F or hypothermia < 96.8 degrees F
- Leukocytosis - WBC > 12,000 or leukopenia - WBC < 4,000 or > 10% bands
- Tachycardia > 90 beats per minute
- Tachypnea - RR > 20 breaths per minute or PaCO2 , 32mmHg
Source: Merck Manual 2013
- Indicate the known or suspected organism
- Indicate the known or suspected underlying infection, such as UTI, pneumonia or cellulitis
Abdominal Wall Cellulitis Only, Without Systemic Illness
Other
Use of terms such as suspected, likely, concern for, or probable (associated with a specific diagnosis that is being evaluated, monitored, or treated as if it exists) are acceptable and can be coded in the inpatient setting, when documented at the
time of discharge.
Thank you,
Blanca Zamora RN, BSN
CDI Specialist
[place] [facility]
Please use your independent medical judgment in providing your response.
--- NOTE | 2025-05-26 16:18 | PHA.VAN.FU ---
Vancomycin Assessment / Plan
- Assessment
Renal Function: Stable
WBC's are: WNL
In the past 24 hrs, patient has been: Afebrile
Concomitant Antimicrobials: cefepime
- Dosing Plan
Continue: Vanc 1250mg Q12H
- Monitoring Plan
No level(s) ordered at this time: consider levels in next few days
- Follow Up
Pharmacy will continue to follow.
Vancomycin Follow UP
- -
Patient Age: 60
Patient Sex: Female
Vancomycin Day #: 3
Indication: Skin And Soft Tissue
Requesting Provider: Enrike De Jesus
Pertinent Antimicrobial Allergies:
Amoxicillin - hives reaction occured greater than 10 years ago
Height / Weight:
Height 5 ft 7.5 in
Actual Weight 94.5 kg
Pertinent Past Medical History: BMI ~32, MS, suprapubic catheter
- Vital Signs / Lab Results
Temp Pulse Resp BP Pulse Ox
97.9 F 90 18 123/91 98
05/26/25 15:18 05/26/25 15:18 05/26/25 15:18 05/26/25 15:18 05/26/25 15:18
Lab Results - Hematology
05/24/25 05/25/25 05/26/25
11:20 07:33 07:19
WBC 11.6 H 12.7 H 10.4
Lab Results - Chemistry
05/24/25 05/25/25 05/26/25
11:20 07:33 07:19
BUN 16 20 H 21 H
Creatinine 0.8 0.8 0.8
Estimated Creat Clear 91 89 89
Albumin 3.8
Microbiology Results
05/24/25 13:24 Wound Culture - Final
Abdomen Proteus mirabilis
Escherichia coli
Gram negative bacilli
Enterococcus species
Gram Stain - Final
05/24/25 11:19 Blood Culture - Preliminary
Blood/Venous No Growth in 48 hours- Final report to follow
05/24/25 11:19 Blood Culture - Preliminary
Blood/Venous No Growth in 48 hours- Final report to follow
05/24/25 17:11 MRSA Screen - Final
Nose No Methicillin Resistant Staphylococcus aureus isolated.
05/24/25 11:21 Urine Culture - Final
Urine NO GROWTH
--- NOTE | 2025-05-26 16:42 | W.PN.URO.CBU ---
Today's Communication / Plan
-
plan per id
Assessment / Plan
-
suprapubic abscess no obvious intaabdomial or pelvic involvement . continue packing and wound care and iv abs
Diagnosis
-
Date of Service: May 26, 2025
-
Patient Diagnosis:
Post Op Day:
Patient Diagnosis:
Post Op Day:
Patient Diagnosis:suprapbic abscess at site of sp tube remved
Post Op Day:
Subjective
-
improving
Objective
-
Vital Signs
Temp Pulse Resp BP Pulse Ox
97.9 F 90 18 123/91 98
05/26/25 15:18 05/26/25 15:18 05/26/25 15:18 05/26/25 15:18 05/26/25 15:18
Intake and Output
05/25/25 05/26/25 05/27/25
06:59 06:59 06:59
Intake Total 1440 / 1440
Output Total 1000 / 1000 1500 / 1500
Balance -1000 / -1000 -60 / -60
Intake:
Oral fluids 1440 / 1440
Output:
Urine, Patrick 1000 / 1000 1500 / 1500
Laboratory Results
05/26/25 07:19
05/26/25 07:19
Review of Systems
-
: Difficulty Voiding
Physical Exam
-
General - well developed, well nourished, no acute distress
Chest - clear bilaterally
Abdomen - soft, non-tender, positive bowel sounds, no CVAT, no incisional pain or distention ealing with secondary intent
Genitalia - normal
Rectal - normal
Skin - warm & dry with no rash
Neuro - AOx3, no motor deficits
Extremities - no clubbing, no cyanosis, no edema
Incision - clean, dry
Dressing - clean, dry, intact
Care Review
Data Reviewed
Discussed with: Nursing
[2025-05-26] MEDS: KCL 20 MEQ PO (17:10)
[2025-05-26] MEDS: LOVENOX 40 MG SC (17:11)
[2025-05-26 23:00] VITALS: BP 121/81
[2025-05-27 05:49] VITALS: BMI 32.5
[2025-05-27] MEDS: MAXIPIME 1000 MG IV ×3 (06:02→17:57)
[2025-05-27] MEDS: STERILE WATER FOR INJECTION 10 ML IV ×3 (06:02→17:57)
[2025-05-27] MEDS: VANCOCIN 275 MG IV ×2 (06:03→17:58)
[2025-05-27 08:00] VITALS: BP 107/67
[2025-05-27 08:20] LABS: Hematocrit 38.0 % (37.0-47.0); Hemoglobin 12.4 g/dL (12.0-16.0); Mean Corp Hgb Conc. 32.6 g/dL (33.0-37.0); Mean Corpuscular Volume 88.2 fL (81.0-99.0); Platelet Count 778 10^3/uL (130-400); Red Cell Dist. Width 13.6 % (11.5-14.5)
[2025-05-27] MEDS: FLORASTOR 250 MG PO (08:34)
[2025-05-27] MEDS: BUMEX 2 MG PO (08:35)
[2025-05-27 08:45] LABS: Blood Urea Nitrogen 24 mg/dl (7-17); Calcium 9.4 mg/dl (8.4-10.2); Carbon Dioxide 32 mmol/L (22-30); Chloride 102 mmol/L (98-107); Estimated Creatinine Clearance 88 ml/min; Glucose 99 mg/dl (70-99); Potassium 4.8 mmol/L (3.5-5.1); Sodium 137 mmol/L (135-145); eGFR > 60.00
[2025-05-27 09:53] VITALS: BP 117/79; PULSE 75; O2SAT 97
--- NOTE | 2025-05-27 10:03 | W.PN.HOSP.TC ---
Today's Communication/Plan
-
See plan
Assessment / Plan
Assessment / Plan
Physical Exam
General: Comfortable and Conversant
HEENT: Normocephalic. Moist mucous membranes
Respiratory: Clear to Auscultation Bilaterally
Cardiac: S1/S2 and Regular Rhythm
GI: Soft and Non Tender. Positive bowel sounds. Deep wound with surrounding erythema and induration in the lower abdomen.
Musculoskeletal: No Cyanosis
Neuro: Awake, Alert and Oriented
Psych: Calm
Assessment/Plan
ANGELINA: 60-year-old female with past medical history of normal pressure hydrocephalus, multiple sclerosis, neurogenic bladder with chronic urinary catheter, obesity, chronic lower extremity edema and recent suprapubic catheter placed in October 2024
presenting with signs of infection around prior suprapubic catheter site. More recently the catheter was becoming clogged and had increased drainage from around the catheter. Suprapubic catheter was removed several times and also 3 weeks prior to
presentation due to infection and patient on admission was noted to have a Patrick catheter. Started on cefpodoxime outpatient on 05/21 with worsening of symptoms. Vital signs normal. Labs show leukocytosis. Potassium 3.4. Urinalysis unremarkable.
Patient with infection at the site of prior suprapubic catheter placement. Wound culture, blood cultures, vancomycin/cefepime. Urology consulted. Wound care consulted. Potassium repletion.
Abdominal Wall Cellulitis with Deep Tunneling Wound secondary to Non-Healing/Infected Suprapubic Catheter Site
Leukocytosis
-Wound culture growing: polymicrobial growth of Proteus, E. coli, Enterococcus and an additional gram-negative werner
-Blood cultures with no growth to date
-MRSA negative
-Continue vancomycin and cefepime for now, appreciate ID
-Continue wound care
-Given nature of lower abdominal wound -- deep wound with tunneling into the abdominal wall, and surrounding induration and erythema, for this reason, consulted Infectious Disease
Neurogenic Bladder
-Suprapubic catheter has been removed, and patient now with Patrick catheter
-Consult Urology -- appreciate urology
Hypokalemia
-Resolved
-Monitor BMP
Thrombocytosis
-Suspected at least partly secondary to infection
-If significant thrombocytosis continues to persist, will consult hematology
-Asked document preparer microfilming on-call Dr. Montilla (not formal consult), given persistent thrombocytosis: check iron studies as it�s a common cause for thrombocytosis under stress
-Outpatient follow-up with hematology
Multiple Sclerosis
-[facility]
-She receives an infusion at [facility] every six months (Last treatment February 23) though brother does not know the name of the medications
Chronic Lower Extremity Edema
-Continue Bumex and potassium supplement
Left buttock with stage 1 PI vs shearing, non blanchable patch of redness
Left ischium with healed ulcer now pale scar
L inner buttock with stage 2 PI vs MASD
-Continue wound care
DVT prophylaxis: Lovenox
Code Status: Full Code
Anticipated Discharge: > 48 hours
Subjective/Interval History
-
Date of Service: May 27, 2025
Patient was seen and examined. She denied any symptoms or complaints.
Objective Data
-
Labs:
Laboratory Results
05/27/25
07:24
WBC 11.1 H
Hgb 12.4
Hct 38.0
Plt Count 778 H
Sodium 137
Potassium 4.8
Chloride 102
Carbon Dioxide 32 H
BUN 24 H
Creatinine 0.8
Glucose 99
Calcium 9.4
Vital Signs:
Vital Signs
Temp Pulse Resp BP Pulse Ox
97.9 F 63 16 107/67 99
05/27/25 08:00 05/27/25 08:00 05/27/25 08:00 05/27/25 08:00 05/27/25 08:00
I&O
05/26/25 05/27/25 05/28/25
06:59 06:59 06:59
Intake Total 1440 / 1440 192 / 1919
Output Total 1500 / 1500 1999
Balance -60 / -60 -80 / -80
--- NOTE | 2025-05-27 10:17 | W.PN.URO.CBU ---
Today's Communication / Plan
-
oberve continue local wound care
Assessment / Plan
-
suprapubic abscess no obvious intaabdomial or pelvic involvement . continue packing and wound care and iv abs
Diagnosis
-
Date of Service: May 27, 2025
-
Patient Diagnosis:
Post Op Day:
Patient Diagnosis:
Post Op Day:
Patient Diagnosis:
Post Op Day:
Patient Diagnosis:suprapbic abscess at site of sp tube remved
Post Op Day:
Subjective
-
feels well
Objective
-
Vital Signs
Temp Pulse Resp BP Pulse Ox
97.9 F 63 16 107/67 99
05/27/25 08:00 05/27/25 08:00 05/27/25 08:00 05/27/25 08:00 05/27/25 08:00
Intake and Output
05/26/25 05/27/25 05/28/25
06:59 06:59 06:59
Intake Total 1440 / 1440 1919 / 0
Output Total 1500 / 1500 2000 / 2000
Balance -60 / -60 -80 / -80
Intake:
Oral fluids 1440 / 1440 1919 / 1919
Output:
Urine, Patrick 1500 / 1500 1750 / 1750
Urine, Voided 250 / 250
Laboratory Results
05/27/25 07:24
05/27/25 07:24
Review of Systems
-
Abdomen/GI: Abdominal Pain
Physical Exam
-
General - well developed, well nourished, no acute distress
Chest - clear bilaterally
Abdomen - soft, non-tender, positive bowel sounds, no CVAT, no incisional pain or distention clearing no obvious abscess
Genitalia - normal
Rectal - normal
Skin - warm & dry with no rash
Neuro - AOx3, no motor deficits
Extremities - no clubbing, no cyanosis, no edema
Incision - clean, dry
Dressing - clean, dry, intact
--- NOTE | 2025-05-27 11:16 | W.PN.ID1 ---
Date of Service
Date of Service: May 27, 2025
Today's Communication
Continue antibiotics.
Assessment / Plan
Suprapubic catheter tract site infection
Lower abdomen SSTI
Leukocytosis
Thrombocytosis
Normal pressure hydrocephalus
Multiple sclerosis
Neurogenic bladder
Chronic catheter
Recommendations:
Cultures reviewed, and revealed polymicrobial growth of Proteus, E. coli, Enterococcus and an additional gram-negative werner.
Continue with empiric cefepime and vancomycin.
Await final identification and susceptibility data to guide further antimicrobial selection and potential de-escalation. I have asked microbiology to workup all isolates.
Blood cultures without growth to date.
Monitor white count and temperature curve.
Continue with local care to the area.
����������������������������������������������������������
Chief Complaint
-: Other (lower abdominal wound)
Subjective / Review of Systems
Review of Systems: No Fever, No Chills and No Abdominal Pain
Vital Signs / Physical Exam
Vital Signs
Vital Signs
Temp Pulse Resp BP Pulse Ox
97.9 F 63 16 107/67 99
05/27/25 08:00 05/27/25 08:00 05/27/25 08:00 05/27/25 08:00 05/27/25 08:00
Physical Exam
Constitutional: No Acute Distress, Comfortable and Non-toxic
Eyes: Sclera Anicteric
Cardiovascular: S1/S2; Negative S3/S4
Pulmonary: Non Labored
Gastrointestinal: Soft, Tender (Right lower abdomen with mild erythema, induration) and Non Distended
Wound: Other (Suprapubic wound dressed. Packing in place. Little to no periwound erythema.)
Neurological: Awake and Alert
Psychological: Calm
Objective Data
Lab Data
Lab Results
05/27/25 07:24
05/27/25 07:24
Estimated Creat Clear 88 ml/min 05/27/25 07:24
Total Bilirubin 0.6 mg/dl (0.2-1.3) 05/24/25 11:20
AST 21 U/L (14-36) 05/24/25 11:20
ALT 26 U/L (0-35) 05/24/25 11:20
Alkaline Phosphatase 186 U/L (38-126) H 05/24/25 11:20
Most recent labs reviewed.
Micro Results:
05/24/25 13:24 Wound Culture - Final
Abdomen Proteus mirabilis
Escherichia coli
Gram negative bacilli
Enterococcus species
Gram Stain - Final
05/24/25 11:19 Blood Culture - Preliminary
Blood/Venous No Growth in 48 hours- Final report to follow
05/24/25 11:19 Blood Culture - Preliminary
Blood/Venous No Growth in 48 hours- Final report to follow
05/24/25 17:11 MRSA Screen - Final
Nose No Methicillin Resistant Staphylococcus aureus isolated.
05/24/25 11:21 Urine Culture - Final
Urine NO GROWTH
Imaging:
05/24/2025 CT pelvis with contrast: Thin soft tissue tract extending from the anterosuperior aspect of the urinary bladder anterior pelvic wall. No evidence for air or fluid within this tract. There is a small tract from the anterior pelvic wall to
the anterior skin surface, containing a small amount of air and fluid. This would suggest infection with thin fistulous tract, with draining wound, as suggested in the clinical history. There is also air and stranding soft tissue density extending
toward the right within the anterior pelvic wall, findings compatible cellulitis. No evidence for drainable collection at this time. Distention of the rectum with stool, transverse dimension of 8.4 cm. Mild stranding of the fat surrounding the
rectum suggesting stercoral colitis. No evidence for perforation.
--- NOTE | 2025-05-27 13:17 | CM ---
CM reviewed chart, patient seen bedside. Patient remains on IV antibiotics. Patient will require ambulance transport upon discharge, forms on chart. CM will continue to follow for all discharge planning needs.
Plan; return to [facility] when stable, ambulance transport
[facility]
Report: [phone]
--- NOTE | 2025-05-27 15:28 | PHA.VAN.FU ---
Vancomycin Assessment / Plan
- Assessment
Renal Function: Stable
WBC's are: Trending Up
In the past 24 hrs, patient has been: Afebrile
Concomitant Antimicrobials: cefepime
- Dosing Plan
Continue: Vanc 1250mg Q12H
- Monitoring Plan
Peak Level: 05/27 21:30
Trough Level: 05/28 05:30
Monitoring Comments: levels to be drawn after 6th maintenance dose
- Follow Up
Pharmacy will continue to follow.
Vancomycin Follow UP
- -
Patient Age: 60
Patient Sex: Female
Vancomycin Day #: 4
Indication: Skin And Soft Tissue
Requesting Provider: Enrike De Jesus
Pertinent Antimicrobial Allergies:
Amoxicillin - hives reaction occured greater than 10 years ago
Height / Weight:
Height 5 ft 7 in
Actual Weight 93.922 kg
Pertinent Past Medical History: BMI ~32, MS, suprapubic catheter
- Vital Signs / Lab Results
Temp Pulse Resp BP Pulse Ox
97.9 F 63 16 107/67 99
05/27/25 08:00 05/27/25 08:00 05/27/25 08:00 05/27/25 08:00 05/27/25 08:00
Lab Results - Hematology
05/25/25 05/26/25 05/27/25
07:33 07:19 07:24
WBC 12.7 H 10.4 11.1 H
Lab Results - Chemistry
05/25/25 05/26/25 05/27/25
07:33 07:19 07:24
BUN 20 H 21 H 24 H
Creatinine 0.8 0.8 0.8
Estimated Creat Clear 89 89 88
Microbiology Results
05/24/25 13:24 Wound Culture - Preliminary
Abdomen Proteus mirabilis
Escherichia coli
Gram negative bacilli
Enterococcus species
Gram Stain - Final
05/24/25 11:19 Blood Culture - Preliminary
Blood/Venous No Growth in 72 hours- Final report to follow
05/24/25 11:19 Blood Culture - Preliminary
Blood/Venous No Growth in 72 hours- Final report to follow
05/24/25 17:11 MRSA Screen - Final
Nose No Methicillin Resistant Staphylococcus aureus isolated.
05/24/25 11:21 Urine Culture - Final
Urine NO GROWTH
[2025-05-27 16:00] VITALS: BP 130/91
[2025-05-27] MEDS: KCL 20 MEQ PO (17:57)
[2025-05-27] MEDS: LOVENOX 40 MG SC (17:57)
[2025-05-27 23:29] VITALS: BP 116/82
[2025-05-28] MEDS: MAXIPIME 1000 MG IV ×5 (00:26→23:09)
[2025-05-28] MEDS: STERILE WATER FOR INJECTION 10 ML IV ×5 (00:27→23:08)
[2025-05-28 06:00] VITALS: BMI 34.8
[2025-05-28 06:40] LABS: Blood Urea Nitrogen 25 mg/dl (7-17); Calcium 9.6 mg/dl (8.4-10.2); Carbon Dioxide 35 mmol/L (22-30); Chloride 100 mmol/L (98-107); Estimated Creatinine Clearance 88 ml/min; Glucose 112 mg/dl (70-99); Iron 87 ug/dl (37-170); Potassium 4.1 mmol/L (3.5-5.1); Sodium 138 mmol/L (135-145); eGFR > 60.00
[2025-05-28 06:49] LABS: Total Iron Binding Capacity 268 ug/dl (265-497)
[2025-05-28 07:04] LABS: Hematocrit 41.0 % (37.0-47.0); Hemoglobin 13.2 g/dL (12.0-16.0); Mean Corp Hgb Conc. 32.2 g/dL (33.0-37.0); Mean Corpuscular Volume 88.7 fL (81.0-99.0); Platelet Count 777 10^3/uL (130-400); Red Cell Dist. Width 13.6 % (11.5-14.5)
--- NOTE | 2025-05-28 07:12 | PTCARENOTE ---
RN spoke to Vikram from pharmacy. Pt with 0600 Vanco due, however trough recently drawn and not resulted yet. Pharmacy advised to hold 0600 dose until results are back in case dose needs to be adjusted. Oncoming RN made aware.
[2025-05-28 07:15] LABS: Ferritin 156.0 ng/ml (11.1-264.0)
--- NOTE | 2025-05-28 07:44 | W.PN.HOSP.TC ---
Today's Communication/Plan
-
Continue antibiotics
See plan
Assessment / Plan
Assessment / Plan
Physical Exam
General: Comfortable and Conversant
HEENT: Normocephalic. Moist mucous membranes
Respiratory: Clear to Auscultation Bilaterally
Cardiac: S1/S2 and Regular Rhythm
GI: Soft and Non Tender. Positive bowel sounds. Deep wound with surrounding erythema and induration in the lower abdomen.
Musculoskeletal: No Cyanosis
Neuro: Awake, Alert and Oriented
Psych: Calm
Assessment/Plan
ANGELINA: 60-year-old female with past medical history of normal pressure hydrocephalus, multiple sclerosis, neurogenic bladder with chronic urinary catheter, obesity, chronic lower extremity edema and recent suprapubic catheter placed in October 2024
presenting with signs of infection around prior suprapubic catheter site. More recently the catheter was becoming clogged and had increased drainage from around the catheter. Suprapubic catheter was removed several times and also 3 weeks prior to
presentation due to infection and patient on admission was noted to have a Patrick catheter. Started on cefpodoxime outpatient on 05/21 with worsening of symptoms. Vital signs normal. Labs show leukocytosis. Potassium 3.4. Urinalysis unremarkable.
Patient with infection at the site of prior suprapubic catheter placement. Wound culture, blood cultures, vancomycin/cefepime. Urology consulted. Wound care consulted. Potassium repletion.
Abdominal Wall Cellulitis with Deep Tunneling Wound secondary to Non-Healing/Infected Suprapubic Catheter Site
Sepsis Secondary to Above
Leukocytosis
-Wound culture growing: polymicrobial growth of Proteus, E. coli, Enterococcus and an additional gram-negative werner
-Blood cultures with no growth to date
-MRSA negative
-Continue vancomycin and cefepime for now, appreciate ID
-Continue wound care
-Given nature of lower abdominal wound -- deep wound with tunneling into the abdominal wall, and surrounding induration and erythema, for this reason, consulted Infectious Disease
Neurogenic Bladder
-Suprapubic catheter has been removed, and patient now with Patrick catheter
-Consult Urology -- appreciate urology
Hypokalemia
-Resolved
-Monitor BMP
Thrombocytosis
-Asymptomatic
-Suspected at least partly secondary to infection
-Asked admissions assistant on-call Dr. Montilla (curbside consult), given persistent thrombocytosis: iron studies (as iron deficiency is a common cause for thrombocytosis under stress) - iron studies NORMAL
-Spoke with hematology on 05/28/25, they recommended inpatient hematology consultation for evaluation of essential thrombocytosis
-Appreciate hematology: repeat CBC in 4 weeks from 05/28/25 to trend platelet count and if still elevated in the absence of secondary causes then would refer to hematology outpatient for consideration of MPN testing
Multiple Sclerosis
-Patient resides at a [facility]
-She receives an infusion at [facility] every six months (Last treatment February 23) though brother does not know the name of the medications
Chronic Lower Extremity Edema
-Continue Bumex and potassium supplement
Left buttock with stage 1 PI vs shearing, non blanchable patch of redness
Left ischium with healed ulcer now pale scar
L inner buttock with stage 2 PI vs MASD
-Continue wound care
DVT Prophylaxis: Lovenox
Code Status: Full Code
Anticipated Discharge: > 48 hours
Subjective/Interval History
-
Date of Service: May 28, 2025
Patient was seen and examined. She denied any complaints.
Objective Data
-
Labs:
Laboratory Results
05/28/25 05/28/25
06:01 06:02
WBC 9.8
Hgb 13.2
Hct 41.0
Plt Count 777 H
Sodium 138
Potassium 4.1
Chloride 100
Carbon Dioxide 35 H
BUN 25 H
Creatinine 0.8
Glucose 112 H
Calcium 9.6
Vital Signs:
Vital Signs
Temp Pulse Resp BP Pulse Ox
97.5 F 91 16 116/82 97
05/27/25 23:29 05/27/25 23:29 05/27/25 23:29 05/27/25 23:29 05/27/25 23:29
I&O
05/27/25 05/28/25 05/29/25
06:59 06:59 06:59
Intake Total 1919 / 1919 480 / 480
Output Total 1999 1800 / 1800
Balance -80 / -80 -1320 / -1320
--- NOTE | 2025-05-28 07:48 | W.PN.URO.CBU ---
Today's Communication / Plan
-
NO CHANGES
Assessment / Plan
-
suprapubic abscess no obvious intaabdomial or pelvic involvement . continue packing and wound care and iv absWBC NL CAN D/C WITH DAILY WOUND CARE ANTIBIOTICS UP TI ID
Diagnosis
-
Date of Service: May 28, 2025
-
Patient Diagnosis:
Post Op Day:
Patient Diagnosis:
Post Op Day:
Patient Diagnosis:
Post Op Day:
Patient Diagnosis:
Post Op Day:
Patient Diagnosis:suprapbic abscess at site of sp tube remved
Post Op Day:
Subjective
-
FEELS BASELINE
Objective
-
Vital Signs
Temp Pulse Resp BP Pulse Ox
97.5 F 91 16 116/82 97
05/27/25 23:29 05/27/25 23:29 05/27/25 23:29 05/27/25 23:29 05/27/25 23:29
Intake and Output
05/27/25 05/28/25 05/29/25
06:59 06:59 06:59
Intake Total 1919 480 / 480
Output Total 1999 1800 / 1800
Balance -80 / -80 -1320 / -1320
Intake:
Oral fluids 1919 480 / 480
Output:
Urine, Patrick 1750 / 1750 1800 / 1800
Urine, Voided 250 / 250
Laboratory Results
05/28/25 06:02
05/28/25 06:01
Review of Systems
-
: Difficulty Voiding
Physical Exam
-
General - well developed, well nourished, no acute distress
Chest - clear bilaterally
Abdomen - soft, non-tender, positive bowel sounds, no CVAT, no incisional pain or distention
Genitalia - normal
Rectal - normal
Skin - warm & dry with no rash
Neuro - AOx3, no motor deficits
Extremities - no clubbing, no cyanosis, no edema
Incision - clean, dry
Dressing - clean, dry, intact
Care Review
Data Reviewed
Discussed with: Nursing
--- NOTE | 2025-05-28 07:53 | PHA.VAN.FU ---
Vancomycin Assessment / Plan
- Assessment
Renal Function: Stable
WBC's are: Trending Down
In the past 24 hrs, patient has been: Afebrile
Concomitant Antimicrobials: cefepime
- Assessment - Therapeutic Drug Monitoring
Extrapolated Cmax (mcg/mL): 38.4
Peak level was drawn: More than 3 hours after previous dose (drawn just over 3H after end of infusion as specimen had to be redrawn; this may decrease accuracy of calculations, including underestimating true value of Cmax and AUC and overestimating
half-life)
Extrapolated Cmin (mcg/mL): 26
Trough Drawn: Appropriately
Levels were drawn: At steady state (levels drawn after 6th maintenance dose)
Calculated AUC (mcg*h/mL): 765
Calculated ke: 0.0370
Calculated half life (H): 18.7
Calculated Vd (L): 88 (~0.9 L/kg)
Calculated Vanc CL (ml/min): 54
Received IV contrast 05/24
Unclear if patient does not follow population PK vs reduced clearance from IV contrast & increasing BUN
Patient may have reduced clearance due to MS affecting muscle mass
- Dosing Plan
Adjust Regimen to: dosing by level - no dose received this AM
Dosing by Level: Hold off on dosing today
- Monitoring Plan
Random Level: 05/29 0600
- Follow Up
Pharmacy will continue to follow.
Vancomycin Follow UP
- -
Patient Age: 60
Patient Sex: Female
Vancomycin Day #: 5
Indication: Skin And Soft Tissue
Requesting Provider: Enrike De Jesus / Dr. Harper
Pertinent Antimicrobial Allergies:
Amoxicillin - hives reaction occured greater than 10 years ago
Height / Weight:
Height 5 ft 7 in
Actual Weight 100.788 kg
Pertinent Past Medical History: BMI ~32, MS, suprapubic catheter
- Vital Signs / Lab Results
Temp Pulse Resp BP Pulse Ox
97.5 F 91 16 116/82 97
05/27/25 23:29 05/27/25 23:29 05/27/25 23:29 05/27/25 23:29 05/27/25 23:29
Lab Results - Hematology
05/25/25 05/26/25 05/27/25
07:33 07:19 07:24
WBC 12.7 H 10.4 11.1 H
05/28/25
06:02
WBC 9.8
Lab Results - Chemistry
05/25/25 05/26/25 05/27/25
07:33 07:19 07:24
BUN 20 H 21 H 24 H
Creatinine 0.8 0.8 0.8
Estimated Creat Clear 89 89 88
05/28/25
06:01
BUN 25 H
Creatinine 0.8
Estimated Creat Clear 88
Microbiology Results
05/24/25 13:24 Wound Culture - Preliminary
Abdomen Proteus mirabilis
Escherichia coli
Gram negative bacilli
Enterococcus species
Gram Stain - Final
05/24/25 11:19 Blood Culture - Preliminary
Blood/Venous No Growth in 72 hours- Final report to follow
05/24/25 11:19 Blood Culture - Preliminary
Blood/Venous No Growth in 72 hours- Final report to follow
05/24/25 17:11 MRSA Screen - Final
Nose No Methicillin Resistant Staphylococcus aureus isolated.
Therapeutic Drug Monitoring
Vancomycin Peak 34.2 ug/ml (18-26) H 05/27/25 22:36
Vancomycin Trough 26.0 ug/ml (5-20) H* 05/28/25 06:01
[2025-05-28 08:00] VITALS: BP 105/69
--- NOTE | 2025-05-28 08:24 | CON.ONC ---
Documented by User: ARIES Ovalles 05/28/25 11:27
Consultation
-
Date Consultation Requested: 05/28/25
Date Consultation Performed: 05/28/25
Requesting Provider: Dr. Norman Allan
Performing Provider: Dr. Alexis Shelton
Reason for Consultation: thrombocytosis
Impression
Impression
a/w Suprapubic catheter tract site infection
Thrombocytosis possibly reactive to infection, however, I can not exclude primary causes at this time
Normal pressure hydrocephalus
Multiple sclerosis
Neurogenic bladder
Plan
Plan
Suprapubic catheter tract site infection per ID, neurogenic bladder per urology
Thrombocytosis can be primary or secondary. This patient does not have any evidence of iron deficiency to explain thrombocytosis, however, her elevation in platelets could be reactive to her infection. I do not have prior CBCs for evaluation to
determine chronicity. She has not constitutional or vasomotor symptoms. She denies splenectomy or family history of myeloproliferative disorders. She should repeat CBC in 4 weeks to trend platelet count and if still elevated in the abscence of
secondary causes then would refer to hematolgoy outpatient for consideration of MPN testing.
Patient History
History of Present Illness
Initial evaluation was notable for WBC 11.6, Hgb 13.7, MCV 86.8, platelet count 818,000. Her iron studies showed a ferritin 156, IS 32, TIBC 268, and an iron 87. Her CT ab/pelvis showed thin soft tissue tract extending from the anterosuperior aspect
of the urinary bladder anterior pelvic wall, a small tract from the anterior pelvic wall to the anterior skin surface, containing a small amount of air and fluid, air and stranding soft tissue density extending toward the right within the anterior
pelvic wall, distention of the rectum with stool, transverse dimension of 8.4 cm, and mild stranding of the fat surrounding the rectum suggesting stercoral colitis. Wound cultures revealed polymicrobial growth of Proteus, E. coli, Enterococcus. She
has been admitted and started on IV antibiotics.
Hematology is consulted regarding thrombocytosis. This patient's platelet count was 818,000 on admission and had trended down to 777,000 today. Iron studies show no deficiency. She denies a personal or family history of blood clots. She is unable
to tell me if she has ever had elevated platelets.
Clinically, she denies chills, cough, sob, olguin, chest pain, n/v/d/c. She denies headache, dizziness, redness or swelling in hand or feet. She denies any neuropathies. She denies any significant bleeding.
afebrile, no hypoxia or hypotension
Past-Medical/Surgical History
PMH normal pressure hydrcephalus, multiple sclerosis, neurogenic bladder, obesity
[facility] suprapubic cath 10/2024
Social resident of [facility], [facility], never smoker. denies etoh or recreational drugs
family denies malignancy
Patient Medication
�Medication �Instructions �Recorded �Confirmed �Last Taken �Type
bisacodyl 10 mg rectal suppository 10 mg NH DAILYPRN PRN constipation 04/09/24 05/24/25 10/12/23 History
(Dulcolax (bisacodyl))
bumetanide 1 mg tablet 2 mg PO DAILY Fluid 04/09/24 05/24/25 05/24/25 History
Retention/Swelling
loperamide 2 mg capsule 2 mg PO Q8HPRN PRN diarrhea 04/09/24 05/24/25 03/03/25 History
magnesium hydroxide 400 mg/5 mL 30 ml PO [id number] PRN constipation 04/09/24 05/24/25 10/12/23 History
oral suspension (Milk of Magnesia)
sennosides 8.6 mg-docusate sodium 1 tab-cap PO BIDPRN PRN 04/09/24 05/24/25 12/15/24 History
50 mg capsule (Senna Plus) constipation
sodium phosphates 19 gram-7 118 ml NH DAILYPRN PRN constipation 04/09/24 05/24/25 Unknown History
gram/118 mL enema (Fleet Enema)
Saccharomyces boulardii 250 mg 250 mg PO DAILY Supplement 05/24/25 05/24/25 05/24/25 History
capsule (Florastor)
acetaminophen 325 mg tablet 650 mg PO Q6HPRN PRN mild pain 05/24/25 05/24/25 05/23/25 History
(Tylenol)
cefpodoxime 100 mg tablet 100 mg PO BID Infection 05/24/25 05/24/25 05/24/25 History
potassium chloride 20 mEq 20 meq PO QPM Supplement 05/24/25 05/24/25 05/23/25 History
tablet,extended release
Active Medications
Generic Name Dose Route Start Last Admin
Trade Name Freq PRN Reason Stop Dose Admin
Acetaminophen 650 mg 05/24/25 16:52
Acetaminophen 325 Mg Tablet PO 06/21/25 16:51
Q6HPRN PRN
mild pain/fever
Bumetanide 2 mg 05/25/25 08:00 05/27/25 08:35
Bumetanide 1 Mg Tablet PO 06/22/25 07:59 2 mg
DAILY AGUSTIN Administration
Cefepime HCl 1,000 mg 05/24/25 18:00 05/28/25 06:23
Cefepime Hcl 1,000 Mg/11.3 Ml Vial IV 1,000 mg
Q6H AGUSTIN Administration
Enoxaparin Sodium 40 mg 05/24/25 18:00 05/27/25 17:57
Enoxaparin Sodium 40 Mg/0.4 Ml Syringe SC 06/21/25 17:59 40 mg
QPM AGUSTIN Administration
Vancomycin HCl 1,250 mg/ 275 mls @ 183.33 mls/hr 05/25/25 06:00 05/27/25 17:58
Sodium Chloride IV 275 mls
Q12H AGUSTIN Administration
Protocol
Potassium Chloride 20 meq 05/24/25 18:00 05/27/25 17:57
Potassium Chloride 20 Meq Extended Release Tablet PO 06/21/25 17:59 20 meq
QPM AGUSTIN Administration
Saccharomyces Boulardii 250 mg 05/25/25 08:00 05/27/25 08:34
Saccharomyces Boulardi (Florastor) 250 Mg Capsule PO 06/22/25 07:59 250 mg
DAILY AGUSTIN Administration
Sodium Chloride 0 flush 05/24/25 17:00
Sodium Chloride 0.9% (Flush) Syringe IV 06/21/25 16:59
PER PROTOCOL AGUSTIN
Sterile Water 10 ml 05/24/25 18:00 05/28/25 06:23
Sterile Water For Injection 10 Ml Vial IV 06/21/25 17:59 10 ml
Q6H AGUSTIN Administration
Review of Systems
-
ROS is notable for HPI, otherwise negative
Physical Exam
-
General: No Apparent Distress
HEENT: Moist Mucous Membranes; Negative Jaundice
Pulmonary: Other (unlabored)
Genito-Urinary: Other (nunez catheter)
Extremities: Pulses Present
Skin: Other (Suprapubic wound dressed, RLQ with mild erythema)
Psych: Calm
Labs
Lab Results
WBC 9.8 10^3/uL (4.8-10.8) 05/28/25 06:02
RBC 4.62 10^6/uL (4.20-5.40) 05/28/25 06:02
Hgb 13.2 g/dL (12.0-16.0) 05/28/25 06:02
Hct 41.0 % (37.0-47.0) 05/28/25 06:02
MCV 88.7 fL (81.0-99.0) 05/28/25 06:02
MCH 28.6 pg (27.0-31.0) 05/28/25 06:02
MCHC 32.2 g/dL (33.0-37.0) L 05/28/25 06:02
RDW 13.6 % (11.5-14.5) 05/28/25 06:02
Plt Count 777 10^3/uL (130-400) H 05/28/25 06:02
MPV 9.1 fL (7.4-10.4) 05/28/25 06:02
Abs Immat Gran (auto) 0.1 10^3/uL (0-0.05) H 05/24/25 11:20
Absolute Neuts (auto) 8.2 10^3/uL (1.4-6.5) H 05/24/25 11:20
Absolute Lymphs (auto) 2.0 10^3/uL (1.2-3.4) 05/24/25 11:20
Absolute Monos (auto) 1.2 10^3/uL (0.1-0.6) H 05/24/25 11:20
Absolute Eos (auto) 0.1 10^3/uL (0-0.7) 05/24/25 11:20
Absolute Basos (auto) 0.0 10^3/uL (0-0.2) 05/24/25 11:20
Immature Gran % 0.7 % (0-0.5) H 05/24/25 11:20
Neutrophils % 70.3 % (42.2-75.2) 05/24/25 11:20
Lymphocytes % 17.6 % (20.5-51.1) L 05/24/25 11:20
Monocytes % 10.0 % (1.7-9.3) H 05/24/25 11:20
Eosinophils % 1.1 % (0-6) 05/24/25 11:20
Basophils % 0.3 % (0-2) 05/24/25 11:20
Creatinine 0.8 mg/dL (0.6-1.0) 05/28/25 06:01
Vital Signs
Vital Signs
Temp Pulse Resp BP Pulse Ox
97.5 F 91 16 116/82 97
05/27/25 23:29 05/27/25 23:29 05/27/25 23:29 05/27/25 23:29 05/27/25 23:29

Documented by User: Alexis Shleton MD 05/28/25 16:52
Plan
Plan
Suprapubic catheter tract site infection per ID, neurogenic bladder per urology
Thrombocytosis can be primary or secondary. This patient does not have any evidence of iron deficiency to explain thrombocytosis, however, her elevation in platelets could be reactive to her infection. I do not have prior CBCs for evaluation to
determine chronicity. She has not constitutional or vasomotor symptoms. She denies splenectomy or family history of myeloproliferative disorders. She should repeat CBC in 4 weeks to trend platelet count and if still elevated in the abscence of
secondary causes then would refer to hematolgoy outpatient for consideration of MPN testing.
Hematology Addendum:
Patient seen and evaluated and agree w/ [employer] SALESPERSON note and plan as outlined
-thrombocytosis - w/ suprapubic cath site infection
-possibly reactive in setting of acute infection/ inflammation
-follow CBC
-outpt f/u for consideration of MPN testing
[2025-05-28] MEDS: BUMEX 2 MG PO (08:47)
[2025-05-28] MEDS: FLORASTOR 250 MG PO (08:48)
[2025-05-28] MEDS: FLUSH (NSS) 1 FLUSH IV (14:31)
--- NOTE | 2025-05-28 15:04 | W.PN.ID1 ---
Date of Service
Date of Service: May 28, 2025
Today's Communication
Continue current antibiotics.
Assessment / Plan
Suprapubic catheter tract site infection
Lower abdomen SSTI
Leukocytosis
Thrombocytosis
Normal pressure hydrocephalus
Multiple sclerosis
Neurogenic bladder
Chronic catheter
Recommendations:
Cultures reviewed, and revealed polymicrobial growth of Proteus, E. coli, Enterococcus and an additional gram-negative werner.
Continue with empiric cefepime and vancomycin.
Await final identification and susceptibility data to guide further antimicrobial selection and potential de-escalation. I have asked microbiology to workup all isolates.
Blood cultures without growth to date.
Monitor white count and temperature curve.
Continue with local care to the area.
����������������������������������������������������������
Chief Complaint
-: Other (lower abdominal wound)
Subjective / Review of Systems
Review of Systems: No Fever and No Chills
Vital Signs / Physical Exam
Vital Signs
Vital Signs
Temp Pulse Resp BP Pulse Ox
97.6 F 70 14 105/69 97
05/28/25 08:00 05/28/25 08:47 05/28/25 08:00 05/28/25 08:47 05/28/25 08:00
Physical Exam
Constitutional: No Acute Distress, Comfortable and Non-toxic
Eyes: Sclera Anicteric
Cardiovascular: S1/S2; Negative S3/S4
Pulmonary: Non Labored
Gastrointestinal: Soft, Tender (Right lower abdomen with mild erythema, induration) and Non Distended
Wound: Other (Suprapubic wound dressed. Packing in place. Little to no periwound erythema.)
Neurological: Awake and Alert
Psychological: Calm
Objective Data
Lab Data
Lab Results
05/28/25 06:02
05/28/25 06:01
Estimated Creat Clear 88 ml/min 05/28/25 06:01
Total Bilirubin 0.6 mg/dl (0.2-1.3) 05/24/25 11:20
AST 21 U/L (14-36) 05/24/25 11:20
ALT 26 U/L (0-35) 05/24/25 11:20
Alkaline Phosphatase 186 U/L (38-126) H 05/24/25 11:20
Most recent labs reviewed.
Micro Results:
05/24/25 11:19 Blood Culture - Preliminary
Blood/Venous No Growth in 4 days- Final report to follow
05/24/25 11:19 Blood Culture - Preliminary
Blood/Venous No Growth in 4 days- Final report to follow
05/24/25 13:24 Wound Culture - Preliminary
Abdomen Proteus mirabilis
Escherichia coli
Gram negative bacilli
Enterococcus species
Gram Stain - Final
05/24/25 17:11 MRSA Screen - Final
Nose No Methicillin Resistant Staphylococcus aureus isolated.
05/24/25 11:21 Urine Culture - Final
Urine NO GROWTH
Imaging:
05/24/2025 CT pelvis with contrast: Thin soft tissue tract extending from the anterosuperior aspect of the urinary bladder anterior pelvic wall. No evidence for air or fluid within this tract. There is a small tract from the anterior pelvic wall to
the anterior skin surface, containing a small amount of air and fluid. This would suggest infection with thin fistulous tract, with draining wound, as suggested in the clinical history. There is also air and stranding soft tissue density extending
toward the right within the anterior pelvic wall, findings compatible cellulitis. No evidence for drainable collection at this time. Distention of the rectum with stool, transverse dimension of 8.4 cm. Mild stranding of the fat surrounding the
rectum suggesting stercoral colitis. No evidence for perforation.
[2025-05-28 15:50] VITALS: BP 120/71
[2025-05-28] MEDS: KCL 20 MEQ PO (17:23)
[2025-05-28] MEDS: LOVENOX 40 MG SC (17:23)
[2025-05-28 23:06] VITALS: BP 99/66
[2025-05-28] MEDS: COLACE 100 MG PO (23:08)
[2025-05-29] MEDS: MAXIPIME 1000 MG IV ×3 (05:04→17:30)
[2025-05-29] MEDS: STERILE WATER FOR INJECTION 10 ML IV ×3 (05:04→17:30)
[2025-05-29 05:14] VITALS: BMI 33.5
[2025-05-29 05:28] LABS: Hematocrit 39.4 % (37.0-47.0); Hemoglobin 13.1 g/dL (12.0-16.0); Mean Corp Hgb Conc. 33.2 g/dL (33.0-37.0); Mean Corpuscular Volume 86.6 fL (81.0-99.0); Platelet Count 777 10^3/uL (130-400); Red Cell Dist. Width 13.5 % (11.5-14.5)
[2025-05-29 05:47] LABS: Blood Urea Nitrogen 25 mg/dl (7-17); Calcium 9.8 mg/dl (8.4-10.2); Carbon Dioxide 34 mmol/L (22-30); Chloride 100 mmol/L (98-107); Estimated Creatinine Clearance 89 ml/min; Glucose 110 mg/dl (70-99); Potassium 4.0 mmol/L (3.5-5.1); Sodium 137 mmol/L (135-145); eGFR > 60.00
[2025-05-29 08:00] VITALS: BP 119/76
--- NOTE | 2025-05-29 08:02 | PHA.VAN.FU ---
Vancomycin Assessment / Plan
- Assessment
Renal Function: Stable
WBC's are: WNL
In the past 24 hrs, patient has been: Afebrile
Concomitant Antimicrobials: CEFEPIME
- Assessment - Therapeutic Drug Monitoring
Random Level: 12.0 DRAWN ~36HR AFTER PREVIOUS VANCO 1250MG 05/27 @1758
- Dosing Plan
Dosing by Level: Re-dose today (VANCO 1250MG)
- Monitoring Plan
Random Level: 05/30 @0600
- Follow Up
Pharmacy will continue to follow.
Vancomycin Follow UP
- -
Patient Age: 60
Patient Sex: Female
Vancomycin Day #: 6
Indication: Skin And Soft Tissue
Requesting Provider: Enrike De Jesus / Dr. Harper
Pertinent Antimicrobial Allergies:
Amoxicillin - hives reaction occured greater than 10 years ago
Height / Weight:
Height 5 ft 7 in
Actual Weight 97.023 kg
Pertinent Past Medical History: BMI ~32, MS, suprapubic catheter
- Vital Signs / Lab Results
Temp Pulse Resp BP Pulse Ox
98.5 F 81 16 99/66 100
05/28/25 23:06 05/28/25 23:06 05/28/25 23:06 05/28/25 23:06 05/28/25 23:06
Lab Results - Hematology
05/26/25 05/27/25 05/28/25
07:19 07:24 06:02
WBC 10.4 11.1 H 9.8
05/29/25
05:13
WBC 9.1
Lab Results - Chemistry
05/26/25 05/27/25 05/28/25
07:19 07:24 06:01
BUN 21 H 24 H 25 H
Creatinine 0.8 0.8 0.8
Estimated Creat Clear 89 88 88
05/29/25
05:13
BUN 25 H
Creatinine 0.8
Estimated Creat Clear 89
Microbiology Results
05/24/25 13:24 Wound Culture - Preliminary
Abdomen Proteus mirabilis
Escherichia coli
Gram negative bacilli
Enterococcus species
Gram Stain - Final
05/24/25 11:19 Blood Culture - Preliminary
Blood/Venous No Growth in 4 days- Final report to follow
05/24/25 11:19 Blood Culture - Preliminary
Blood/Venous No Growth in 4 days- Final report to follow
Therapeutic Drug Monitoring
Vancomycin Peak 34.2 ug/ml (18-26) H 05/27/25 22:36
Vancomycin Trough 26.0 ug/ml (5-20) H* 05/28/25 06:01
Random Vancomycin 12.0 ug/ml 05/29/25 05:12
[2025-05-29] MEDS: VANCOCIN 275 MG IV (08:22)
[2025-05-29] MEDS: BUMEX 2 MG PO (08:22)
[2025-05-29] MEDS: FLORASTOR 250 MG PO (08:22)
--- NOTE | 2025-05-29 09:11 | VATNOTE ---
pt left arm location of prior vanco infiltrate appears resolved. will cont to monitor for vat needs
--- NOTE | 2025-05-29 10:19 | W.PN.URO.CBU ---
Today's Communication / Plan
-
Continue local wound care with daily dressing changes, gentle wound packing
Stable for discharge from urology standpoint
Antibiotic course per ID
Assessment / Plan
-
60F with history of suprapubic tube
presenting with suprapubic abscess s/p drainage
Continue local wound care with daily dressing changes, gentle wound packing
Stable for discharge from urology standpoint
Antibiotic course per ID
Diagnosis
-
Date of Service: May 29, 2025
-
Post Op Day:
Patient Diagnosis:suprapbic abscess at site of sp tube remved
Post Op Day:
Subjective
-
no problem overnight
no pain
Objective
-
Vital Signs
Temp Pulse Resp BP Pulse Ox
98.5 F 78 18 119/76 100
05/28/25 23:06 05/29/25 08:00 05/29/25 08:00 05/29/25 08:00 05/29/25 08:00
Intake and Output
05/28/25 05/29/25 05/30/25
06:59 06:59 06:59
Intake Total 480 / 480 240 / 240
Output Total 1800 / 1800 350 / 350
Balance -1320 / -1320 -110 / -110
Intake:
Oral fluids 480 / 480 240 / 240
Output:
Urine, Nunez 1800 / 1800 350 / 350
Laboratory Results
05/29/25 05:13
05/29/25 05:13
Physical Exam
-
General - well developed, well nourished, no acute distress
Chest - clear
Abdomen - soft, non-tender
SPT wound site with well healing healthy wound edges, no purulent drainage
nnuez clear urine
Skin - warm & dry with no rash
--- NOTE | 2025-05-29 13:51 | W.PN.HOSP.TC ---
Today's Communication/Plan
-
cont Abx and daily packing
Assessment / Plan
Assessment / Plan
60yo F with PMHX of NPH, CHF, HTN, MS, cognitive impairment, neurogenic bladder dysfunction s/p suprapubic catheter came with rednessaround catheter site, found abd wall cellulitis with fistulous tract and stercoral colitis.
A/P:
#Suprapubic catheter tract infection with abdominal wall cellulitis and fistulous tract
#NEurogenic bladder
ID consult: Abx as per culture
Wound Cx: Proteus mirabilis, E.coli, Klebsiela pnaumoniae, E.faecalis
Urology consult: cont packing
Patrick in
Bcx NTD
#Stercoral colitis
on Abx
laxaticves
#MS
not in flare
receives an infusion at [facility] every six months
#Cognitive impairment
no further mgmt
#chronci b/l LE lymphedema
#essentiaL HTN
cont Bumex
#THrombocytosis
hematology consult: repeat CBC in 4 weeks and hematology referral if still elevated
#Left buttock with stage 1 PI vs shearing, non blanchable patch of redness
#Left ischium with healed ulcer now pale scar
#L inner buttock with stage 2 PI vs MASD
Wound care
DVT ppx lovenox
Full code
I have spent at [facility]min reviewing chart, test results, communication with consultants and providing direct patient care
Anticipated Discharge: > 48 hours
Subjective/Interval History
-
Date of Service: May 29, 2025
Objective Data
-
Labs:
Laboratory Results
05/29/25
05:13
WBC 9.1
Hgb 13.1
Hct 39.4
Plt Count 777 H
Sodium 137
Potassium 4.0
Chloride 100
Carbon Dioxide 34 H
BUN 25 H
Creatinine 0.8
Glucose 110 H
Calcium 9.8
Vital Signs:
Vital Signs
Temp Pulse Resp BP Pulse Ox
98.5 F 78 18 119/76 100
05/28/25 23:06 05/29/25 08:00 05/29/25 08:00 05/29/25 08:00 05/29/25 08:00
I&O
05/28/25 05/29/25 05/30/25
06:59 06:59 06:59
Intake Total 480 / 480 240 / 240
Output Total 1800 / 1800 350 / 350
Balance -1320 / -1320 -110 / -110
Review of Systems
-
History Source: Patient
All other systems: Reviewed and negative
Physical Exam
-
General: No Apparent Distress
HEENT: Normocephalic
Cardiac: Regular Rhythm
GI: Soft, Nontender and Nondistended
Genito-urinary: Patrick
Musculoskeletal: No Clubbing, No Cyanosis and No Edema
Neuro: Awake, Alert and Oriented
Psych: Calm and Apparent Dementia
[2025-05-29 15:00] VITALS: BP 124/67
--- NOTE | 2025-05-29 17:25 | W.PN.UPDATE ---
Update Note
Progress Note Update
Dr. Harper noted a region of induration and subcutaneous gas on CT to the R of suprapubic tube site
On exam this area is slightly tender and there is a possible region of underlying residual abscess
Ordered US to eval for drainable collection
[2025-05-29] MEDS: KCL 20 MEQ PO (17:29)
[2025-05-29] MEDS: LOVENOX 40 MG SC (17:29)
[2025-05-29 23:14] VITALS: BP 124/75
[2025-05-30] MEDS: MAXIPIME 1000 MG IV ×4 (00:04→18:37)
[2025-05-30] MEDS: STERILE WATER FOR INJECTION 10 ML IV ×4 (00:05→18:37)
[2025-05-30] MEDS: FLUSH (NSS) 1 FLUSH IV ×2 (00:05→05:01)
[2025-05-30 06:00] VITALS: BMI 33.8
[2025-05-30 07:00] VITALS: BP 113/70
[2025-05-30 07:00] LABS: Hematocrit 40.1 % (37.0-47.0); Hemoglobin 13.1 g/dL (12.0-16.0); Mean Corp Hgb Conc. 32.7 g/dL (33.0-37.0); Mean Corpuscular Volume 88.1 fL (81.0-99.0); Nucleated Red Blood Cells % 0 %; Platelet Count 717 10^3/uL (130-400); Red Cell Dist. Width 13.6 % (11.5-14.5)
[2025-05-30 07:24] LABS: ALT (SGPT) 38 U/L (0-35); AST (SGOT) 42 U/L (14-36); Albumin 3.6 g/dl (3.5-5.0); Alkaline Phosphatase 131 U/L (38-126); Blood Urea Nitrogen 26 mg/dl (7-17); Calcium 9.5 mg/dl (8.4-10.2); Carbon Dioxide 33 mmol/L (22-30); Chloride 101 mmol/L (98-107); Estimated Creatinine Clearance 90 ml/min; Glucose 106 mg/dl (70-99); Potassium 4.1 mmol/L (3.5-5.1); Sodium 136 mmol/L (135-145); Total Protein 6.5 g/dl (6.3-8.2); eGFR > 60.00
--- NOTE | 2025-05-30 08:35 | PHA.VAN.FU ---
Vancomycin Assessment / Plan
- Assessment
Renal Function: Stable
WBC's are: Stable
In the past 24 hrs, patient has been: Afebrile
Concomitant Antimicrobials: CEFEPIME
- Assessment - Therapeutic Drug Monitoring
Random Level: 10.4 DRAWN ~22 HOURS AFTER PREVIOUS 1250MG DOSE
- Dosing Plan
Dosing by Level: Re-dose today (VANCO 1500MG X1)
- Monitoring Plan
Random Level: 05/31 06
- Follow Up
Pharmacy will continue to follow.
Vancomycin Follow UP
- -
Patient Age: 60
Patient Sex: Female
Vancomycin Day #: 7
Indication: Skin And Soft Tissue
Requesting Provider: Enrike De Jesus / Dr. Harper
Pertinent Antimicrobial Allergies:
Amoxicillin - hives reaction occured greater than 10 years ago
Height / Weight:
Height 5 ft 7 in
Actual Weight 97.778 kg
Pertinent Past Medical History: BMI ~32, MS, suprapubic catheter
- Vital Signs / Lab Results
Temp Pulse Resp BP Pulse Ox
97.6 F 76 16 113/70 98
05/30/25 07:00 05/30/25 07:00 05/30/25 07:00 05/30/25 07:00 05/30/25 07:00
Lab Results - Hematology
05/28/25 05/29/25 05/30/25
06:02 05:13 06:35
WBC 9.8 9.1 7.7
Lab Results - Chemistry
05/27/25 05/28/25 05/29/25
07:24 06:01 05:13
BUN 24 H 25 H 25 H
Creatinine 0.8 0.8 0.8
Estimated Creat Clear 88 88 89
Albumin
05/30/25
06:35
BUN 26 H
Creatinine 0.8
Estimated Creat Clear 90
Albumin 3.6
Microbiology Results
05/24/25 13:24 Wound Culture - Final
Abdomen Proteus mirabilis
Escherichia coli
Klebsiella pneumoniae
Enterococcus faecalis
Gram Stain - Final
05/24/25 11:19 Blood Culture - Final
Blood/Venous No Growth - Final Report
05/24/25 11:19 Blood Culture - Final
Blood/Venous No Growth - Final Report
Therapeutic Drug Monitoring
Vancomycin Peak 34.2 ug/ml (18-26) H 05/27/25 22:36
Vancomycin Trough 26.0 ug/ml (5-20) H* 05/28/25 06:01
Random Vancomycin 10.4 ug/ml 05/30/25 06:35
--- NOTE | 2025-05-30 09:01 | CM ---
CM reviewed chart, patient remains on IV antibiotics, continue daily wound packing. CM will continue to follow for all discharge planning needs.
Plan; return to [facility] when stable, ambulance transport
[facility]
Report: [phone]
[2025-05-30] MEDS: BUMEX 2 MG PO (09:36)
[2025-05-30] MEDS: VANCOCIN 530 MG IV (09:36)
[2025-05-30] MEDS: FLORASTOR 250 MG PO (09:37)
--- NOTE | 2025-05-30 10:41 | W.PN.HOSP.TC ---
Today's Communication/Plan
-
cont Abx
US RUQ
Assessment / Plan
Assessment / Plan
60yo F with PMHX of NPH, CHF, HTN, MS, cognitive impairment, neurogenic bladder dysfunction s/p suprapubic catheter came with rednessaround catheter site, found abd wall cellulitis with fistulous tract and stercoral colitis.
A/P:
#Suprapubic catheter tract infection with abdominal wall cellulitis and fistulous tract
#Neurogenic bladder
ID consult: Abx as per culture
Wound Cx: Proteus mirabilis, E.coli, Klebsiella pneumoniae, E.faecalis
Urology consult: cont packing
Patrick in
Bcx NTD
US on 05/30/25 did not show signs of abscess
#Stercoral colitis
on Abx
laxatives
#transaminitis
#Elevated alk.phos
no RUQ pain
US RUQ
hepatitis panel
check GGT
#MS
not in flare
receives an infusion at [facility] every six months
#Cognitive impairment
no further mgmt
#chronic b/l LE lymphedema
#essential HTN
cont Bumex
#Thrombocytosis
hematology consult: repeat CBC in 4 weeks and hematology referral if still elevated
#Left buttock with stage 1 PI vs shearing, non blanchable patch of redness
#Left ischium with healed ulcer now pale scar
#L inner buttock with stage 2 PI vs MASD
Wound care
DVT ppx lovenox
Full code
I have spent at [facility] 51min reviewing chart, test results, communication with consultants and providing direct patient care
Anticipated Discharge: 24 - 48 hours
Subjective/Interval History
-
Date of Service: May 30, 2025
Objective Data
-
Labs:
Laboratory Results
05/30/25
06:35
WBC 7.7
Hgb 13.1
Hct 40.1
Plt Count 717 H
Sodium 136
Potassium 4.1
Chloride 101
Carbon Dioxide 33 H
BUN 26 H
Creatinine 0.8
Glucose 106 H
Calcium 9.5
Total Bilirubin 0.6
AST 42 H
ALT 38 H
Alkaline Phosphatase 131 H
Vital Signs:
Vital Signs
Temp Pulse Resp BP Pulse Ox
97.6 F 76 16 113/70 98
05/30/25 07:00 05/30/25 07:00 05/30/25 07:00 05/30/25 07:00 05/30/25 07:00
I&O
05/29/25 05/30/25 05/31/25
06:59 06:59 06:59
Intake Total 240 / 240 1680 / 1680
Output Total 350 / 350 1999 / 1999
Balance -110 / -110 -320 / -320
Review of Systems
-
History Source: Patient
All other systems: Reviewed and negative
Physical Exam
-
General: No Apparent Distress
HEENT: Normocephalic
Cardiac: Regular Rhythm
GI: Soft, Nontender and Nondistended
Neuro: Awake, Alert, Oriented and AO x 3
Psych: Calm
[2025-05-30 12:05] LABS: GGTP 101 U/L (12-43)
--- NOTE | 2025-05-30 14:19 | W.PN.URO.CBU ---
Today's Communication / Plan
-
Stable for discharge from urology standpoint
Antibiotic course per ID
Assessment / Plan
-
60F with history of suprapubic tube
presenting with suprapubic abscess s/p drainage
US eval of site to the R of initial abscess negative for undrained collection
Exam today is stable or improved, now with no tenderness, no fluctuant region
Continue local wound care with daily dressing changes, gentle wound packing
Stable for discharge from urology standpoint
Antibiotic course per ID
Diagnosis
-
Date of Service: May 30, 2025
-
Post Op Day:
Patient Diagnosis:suprapbic abscess at site of sp tube remved
Post Op Day:
Subjective
-
feeling well
no pain
Objective
-
Vital Signs
Temp Pulse Resp BP Pulse Ox
97.6 F 76 16 113/70 98
05/30/25 07:00 05/30/25 07:00 05/30/25 07:00 05/30/25 07:00 05/30/25 07:00
Intake and Output
05/29/25 05/30/25 05/31/25
06:59 06:59 06:59
Intake Total 240 / 240 1680 / 1680
Output Total 350 / 350 1999
Balance -110 / -110 -320 / -320
Intake:
Oral fluids 240 / 240 1680 / 1680
Output:
Urine, Patrick 350 / 350 1999
Laboratory Results
05/30/25 06:35
05/30/25 06:35
Physical Exam
-
General - well developed, well nourished, no acute distress
Chest - clear
Abdomen - soft, non-tender
Less tenderness around abscess site, no erythema
Incision - clean, dry
Dressing - clean, dry, intact
[2025-05-30 16:09] LABS: Hepatitis B Surface Antigen Negative (Negative)
[2025-05-30 16:26] LABS: Hepatitis C Antibody Negative (Negative)
[2025-05-30] MEDS: LOVENOX 40 MG SC (17:58)
[2025-05-30] MEDS: KCL 20 MEQ PO (17:58)
[2025-05-30 23:45] VITALS: BP 112/72
[2025-05-31] MEDS: MAXIPIME 1000 MG IV ×3 (00:14→11:52)
[2025-05-31] MEDS: STERILE WATER FOR INJECTION 10 ML IV ×3 (00:14→11:52)
[2025-05-31 06:00] VITALS: BMI 33.6
[2025-05-31] MEDS: FLORASTOR 250 MG PO (07:39)
[2025-05-31] MEDS: BUMEX 2 MG PO (07:39)
[2025-05-31 08:45] LABS: ALT (SGPT) 53 U/L (0-35); AST (SGOT) 55 U/L (14-36); Albumin 3.8 g/dl (3.5-5.0); Alkaline Phosphatase 130 U/L (38-126); Blood Urea Nitrogen 24 mg/dl (7-17); Calcium 10.0 mg/dl (8.4-10.2); Carbon Dioxide 29 mmol/L (22-30); Chloride 101 mmol/L (98-107); Estimated Creatinine Clearance 90 ml/min; Glucose 94 mg/dl (70-99); Potassium 4.6 mmol/L (3.5-5.1); Sodium 136 mmol/L (135-145); Total Protein 6.8 g/dl (6.3-8.2); eGFR > 60.00
--- NOTE | 2025-05-31 09:33 | W.PN.HOSP.TC ---
Today's Communication/Plan
-
cont Abx
Assessment / Plan
Assessment / Plan
60yo F with PMHX of NPH, CHF, HTN, MS, cognitive impairment, neurogenic bladder dysfunction s/p suprapubic catheter came with rednessaround catheter site, found abd wall cellulitis with fistulous tract and stercoral colitis.
A/P:
#Suprapubic catheter tract infection with abdominal wall cellulitis and fistulous tract
#Neurogenic bladder
ID consult: Abx as per culture
Wound Cx: Proteus mirabilis, E.coli, Klebsiella pneumoniae, E.faecalis
Urology consult: cont packing
Patrick in
Bcx NTD
US on 05/30/25 did not show signs of abscess
#Stercoral colitis
has daily BM
on Abx
laxatives
#transaminitis
#Elevated alk.phos
no RUQ pain
US RUQ: Several moderate-sized gallstones. No secondary findings to suggest acute cholecystitis. CBD 5mm.
hepatitis panel
GGT elevated
Most likely Abx-induced elevation. With minimal elevation less then 3x normal - will monitor
#MS
not in flare
receives an infusion at [facility] every six months
#Cognitive impairment
no further mgmt
#chronic b/l LE lymphedema
#essential HTN
cont Bumex
#Thrombocytosis
hematology consult: repeat CBC in 4 weeks and hematology referral if still elevated
#Left buttock with stage 1 PI vs shearing, non blanchable patch of redness
#Left ischium with healed ulcer now pale scar
#L inner buttock with stage 2 PI vs MASD
Wound care
DVT ppx lovenox
Full code
I have spent at [facility] 51min reviewing chart, test results, communication with consultants and providing direct patient care
Anticipated Discharge: > 48 hours
Subjective/Interval History
-
Date of Service: May 31, 2025
Objective Data
-
Labs:
Laboratory Results
05/31/25
06:58
WBC Pending
Hgb Pending
Hct Pending
Plt Count Pending
Sodium 136
Potassium 4.6
Chloride 101
Carbon Dioxide 29
BUN 24 H
Creatinine 0.8
Glucose 94
Calcium 10.0
Total Bilirubin 0.6
AST 55 H
ALT 53 H
Alkaline Phosphatase 130 H
Vital Signs:
Vital Signs
Temp Pulse Resp BP Pulse Ox
98.1 F 82 16 107/72 97
05/31/25 07:57 05/31/25 07:39 05/31/25 07:57 05/31/25 07:39 05/31/25 07:57
I&O
05/30/25 05/31/25 06/01/25
06:59 06:59 06:59
Intake Total 1680 / 1680 1200 / 1200
Output Total 1999 / 1999 1950 / 1949
Balance -320 / -320 -750 / -750
Review of Systems
-
History Source: Patient
All other systems: Reviewed and negative
Cardiac: Reports No Symptoms
Abdomen/GI: Reports No Symptoms
Physical Exam
-
General: No Apparent Distress
HEENT: Normocephalic
Respiratory: Clear to Auscultation
GI: Soft, Nontender, Nondistended and Other (s/p tract)
Musculoskeletal: No Clubbing, No Cyanosis and No Edema
Neuro: Awake, Alert and Oriented
Psych: Calm
--- NOTE | 2025-05-31 10:13 | PHA.VAN.FU ---
Vancomycin Assessment / Plan
- Assessment
Renal Function: Stable
In the past 24 hrs, patient has been: Afebrile
Concomitant Antimicrobials: Cefepime
- Assessment - Therapeutic Drug Monitoring
Random Level: 12.1- drawn approx 21.5 hours after dose of vanc 1500mg
- Dosing Plan
Dosing by Level: Re-dose today (Vancomycin 1500mg today, will consider scheduling dose after tomorrow's level)
- Monitoring Plan
Random Level: 06/01 with am labs
- Follow Up
Pharmacy will continue to follow.
Vancomycin Follow UP
- -
Patient Age: 60
Patient Sex: Female
Vancomycin Day #: 8
Indication: Skin And Soft Tissue
Requesting Provider: Enrike De Jesus / Dr. Harper
Pertinent Antimicrobial Allergies:
Amoxicillin - hives reaction occured greater than 10 years ago
Height / Weight:
Height 5 ft 7 in
Actual Weight 97.296 kg
Pertinent Past Medical History: BMI ~34, MS, suprapubic catheter
- Vital Signs / Lab Results
Temp Pulse Resp BP Pulse Ox
98.1 F 82 16 107/72 97
05/31/25 07:57 05/31/25 07:39 05/31/25 07:57 05/31/25 07:39 05/31/25 07:57
Lab Results - Hematology
05/29/25 05/30/25
05:13 06:35
WBC 9.1 7.7
Lab Results - Chemistry
05/29/25 05/30/25 05/31/25
05:13 06:35 06:58
BUN 25 H 26 H 24 H
Creatinine 0.8 0.8 0.8
Estimated Creat Clear 89 90 90
Albumin 3.6 3.8
Microbiology Results
05/24/25 13:24 Wound Culture - Final
Abdomen Proteus mirabilis
Escherichia coli
Klebsiella pneumoniae
Enterococcus faecalis
Gram Stain - Final
05/24/25 11:19 Blood Culture - Final
Blood/Venous No Growth - Final Report
05/24/25 11:19 Blood Culture - Final
Blood/Venous No Growth - Final Report
Therapeutic Drug Monitoring
Vancomycin Peak 34.2 ug/ml (18-26) H 05/27/25 22:36
Vancomycin Trough 26.0 ug/ml (5-20) H* 05/28/25 06:01
Random Vancomycin 12.1 ug/ml 05/31/25 06:58
[2025-05-31] MEDS: VANCOCIN 530 MG IV (10:23)
[2025-05-31 11:55] LABS: Hematocrit 40.8 % (37.0-47.0); Hemoglobin 13.3 g/dL (12.0-16.0); Mean Corp Hgb Conc. 32.6 g/dL (33.0-37.0); Mean Corpuscular Volume 87.6 fL (81.0-99.0); Nucleated Red Blood Cells % 0 %; Platelet Count 682 10^3/uL (130-400); Red Cell Dist. Width 13.5 % (11.5-14.5)
--- NOTE | 2025-05-31 12:30 | W.PN.URO.CBU ---
Today's Communication / Plan
-
Antibiotic course per ID
Assessment / Plan
-
60F with history of suprapubic tube
presenting with suprapubic abscess s/p drainage
US eval of site to the R of initial abscess negative for undrained collection
Exam today is stable or improved without tenderness or fluctuant collection
Continue local wound care with daily dressing changes, gentle wound packing
Stable for discharge from urology standpoint
Antibiotic course per ID
Diagnosis
-
Date of Service: May 31, 2025
-
Patient Diagnosis:suprapubic abscess at site of sp tube removal
Post Op Day:
Subjective
-
No new sx
Feeling well
No pain
Objective
-
Vital Signs
Temp Pulse Resp BP Pulse Ox
98.1 F 82 16 107/72 97
05/31/25 07:57 05/31/25 07:39 05/31/25 07:57 05/31/25 07:39 05/31/25 07:57
Intake and Output
05/30/25 05/31/25 06/01/25
06:59 06:59 06:59
Intake Total 1680 / 1680 1200 / 1200
Output Total 1999
Balance -320 / -320 -750 / -750
Intake:
Oral fluids 1680 / 1680 1200 / 1200
Output:
Urine, Patrick 1999
Laboratory Results
05/31/25 06:58
05/31/25 06:58
Physical Exam
-
General - well developed, well nourished, no acute distress
Chest - clear bilaterally
Abdomen - soft, non-tender
Stable wound with well healing edges
Slight induration to R of wound, stable, no fluctuance or collection underlying
--- NOTE | 2025-05-31 13:55 | W.PN.ID1 ---
Date of Service
Date of Service: May 31, 2025
Today's Communication
Transition to Keflex and linezolid.
Assessment / Plan
Suprapubic catheter tract site infection
Lower abdomen SSTI
Leukocytosis
Thrombocytosis
Normal pressure hydrocephalus
Multiple sclerosis
Neurogenic bladder
Chronic catheter
Recommendations:
Cultures reviewed, and revealed polymicrobial growth of Proteus, E. coli, Enterococcus and Kleb. pneumo.
Blood cultures without growth to date.
Monitor white count and temperature curve.
Continue with local care to the area.
No unifying antibiotic given multitude of isolates recovered.
Will transition to cefazolin for coverage of recovered Proteus, E. coli and Klebsiella. Will need linezolid for recovered Enterococcus.
����������������������������������������������������������
Chief Complaint
-: Other (lower abdominal wound)
Subjective / Review of Systems
Review of Systems: No Fever and No Chills
Vital Signs / Physical Exam
Vital Signs
Vital Signs
Temp Pulse Resp BP Pulse Ox
98.1 F 82 16 107/72 97
05/31/25 07:57 05/31/25 07:39 05/31/25 07:57 05/31/25 07:39 05/31/25 07:57
Physical Exam
Constitutional: No Acute Distress, Comfortable and Non-toxic
Eyes: Sclera Anicteric
Cardiovascular: S1/S2; Negative S3/S4
Pulmonary: Non Labored
Gastrointestinal: Soft, Tender (Right lower abdomen with mild erythema, induration) and Non Distended
Wound: Other (Suprapubic wound dressed. Packing in place. Little to no periwound erythema.)
Neurological: Awake and Alert
Psychological: Calm
Objective Data
Lab Data
Lab Results
05/31/25 06:58
05/31/25 06:58
Estimated Creat Clear 90 ml/min 05/31/25 06:58
Total Bilirubin 0.6 mg/dl (0.2-1.3) 05/31/25 06:58
GGT 101 U/L (12-43) H 05/30/25 06:35
AST 55 U/L (14-36) H 05/31/25 06:58
ALT 53 U/L (0-35) H 05/31/25 06:58
Alkaline Phosphatase 130 U/L (38-126) H 05/31/25 06:58
Most recent labs reviewed.
Micro Results:
05/24/25 13:24 Wound Culture - Final
Abdomen Proteus mirabilis
Escherichia coli
Klebsiella pneumoniae
Enterococcus faecalis
Gram Stain - Final
05/24/25 11:19 Blood Culture - Final
Blood/Venous No Growth - Final Report
05/24/25 11:19 Blood Culture - Final
Blood/Venous No Growth - Final Report
05/24/25 17:11 MRSA Screen - Final
Nose No Methicillin Resistant Staphylococcus aureus isolated.
05/24/25 11:21 Urine Culture - Final
Urine NO GROWTH
Imaging:
05/24/2025 CT pelvis with contrast: Thin soft tissue tract extending from the anterosuperior aspect of the urinary bladder anterior pelvic wall. No evidence for air or fluid within this tract. There is a small tract from the anterior pelvic wall to
the anterior skin surface, containing a small amount of air and fluid. This would suggest infection with thin fistulous tract, with draining wound, as suggested in the clinical history. There is also air and stranding soft tissue density extending
toward the right within the anterior pelvic wall, findings compatible cellulitis. No evidence for drainable collection at this time. Distention of the rectum with stool, transverse dimension of 8.4 cm. Mild stranding of the fat surrounding the
rectum suggesting stercoral colitis. No evidence for perforation.
[2025-05-31 15:50] VITALS: BP 117/74
[2025-05-31] MEDS: LOVENOX 40 MG SC (17:17)
[2025-05-31] MEDS: KCL 20 MEQ PO (17:17)
[2025-05-31] MEDS: KEFLEX 500 MG PO ×2 (17:17→21:00)
[2025-05-31] MEDS: ZYVOX 600 MG PO (20:17)
[2025-05-31 23:04] VITALS: BP 111/75
[2025-06-01 05:15] VITALS: BMI 32.9
[2025-06-01 07:17] VITALS: BP 143/82
[2025-06-01] MEDS: ZYVOX 600 MG PO (07:19)
[2025-06-01] MEDS: BUMEX 2 MG PO (07:19)
[2025-06-01] MEDS: KEFLEX 500 MG PO ×2 (07:19→12:21)
[2025-06-01] MEDS: FLORASTOR 250 MG PO (07:19)
[2025-06-01 08:49] LABS: Hematocrit 41.4 % (37.0-47.0); Hemoglobin 13.4 g/dL (12.0-16.0); Mean Corp Hgb Conc. 32.4 g/dL (33.0-37.0); Mean Corpuscular Volume 88.3 fL (81.0-99.0); Nucleated Red Blood Cells % 0 %; Platelet Count 657 10^3/uL (130-400); Red Cell Dist. Width 13.7 % (11.5-14.5)
[2025-06-01 09:52] LABS: ALT (SGPT) 51 U/L (0-35); AST (SGOT) 40 U/L (14-36); Albumin 3.9 g/dl (3.5-5.0); Alkaline Phosphatase 131 U/L (38-126); Blood Urea Nitrogen 25 mg/dl (7-17); Calcium 9.5 mg/dl (8.4-10.2); Carbon Dioxide 29 mmol/L (22-30); Chloride 100 mmol/L (98-107); Estimated Creatinine Clearance 79 ml/min; Glucose 99 mg/dl (70-99); Potassium 4.3 mmol/L (3.5-5.1); Sodium 136 mmol/L (135-145); Total Protein 6.8 g/dl (6.3-8.2); eGFR > 60.00
--- NOTE | 2025-06-01 11:17 | W.PN.ONC ---
Today's Communication / Plan
-
Probable discharge today. I advised her and her brother to have a CBC done in 4 weeks. If the platelets remain in a similar value, she will need further evaluation in our office.
Impression
Impression
a/w Suprapubic catheter tract site infection
Thrombocytosis possibly reactive to infection, however, I can not exclude primary causes at this time
Normal pressure hydrocephalus
Multiple sclerosis
Neurogenic bladder
Plan
Plan
Suprapubic catheter tract site infection per ID, neurogenic bladder per urology
Thrombocytosis can be primary or secondary. This patient does not have any evidence of iron deficiency to explain thrombocytosis, however, her elevation in platelets could be reactive to her infection. I do not have prior CBCs for evaluation to
determine chronicity. She has not constitutional or vasomotor symptoms. She denies splenectomy or family history of myeloproliferative disorders. She should repeat CBC in 4 weeks to trend platelet count and if still elevated in the abscence of
secondary causes then would refer to hematolgoy outpatient for consideration of MPN testing.
Hematology Addendum:
Patient seen and evaluated and agree w/ [employer] note and plan as outlined
-thrombocytosis - w/ suprapubic cath site infection
-possibly reactive in setting of acute infection/ inflammation
-follow CBC
-outpt f/u for consideration of MPN testing
Subjective/Objective
Subjective/Objective
She is feeling reasonably well. She reports no new symptoms. Examination is unchanged.
Vital Signs:
Vital Signs
Temp Pulse Resp BP Pulse Ox
97.8 F 84 16 143/82 100
06/01/25 07:17 06/01/25 07:19 06/01/25 07:17 06/01/25 07:19 06/01/25 07:17
Lab Results:
Laboratory Data
WBC 7.1 10^3/uL (4.8-10.8) 06/01/25 07:40
Hgb 13.4 g/dL (12.0-16.0) 06/01/25 07:40
Plt Count 657 10^3/uL (130-400) H 06/01/25 07:40
eGFR > 60.00 06/01/25 07:40
--- NOTE | 2025-06-01 11:36 | W.PN.HOSP.TC ---
Today's Communication/Plan
-
DC
Assessment / Plan
Assessment / Plan
60yo F with PMHX of NPH, CHF, HTN, MS, cognitive impairment, neurogenic bladder dysfunction s/p suprapubic catheter came with redness around catheter site, found abd wall cellulitis with fistulous tract and stercoral colitis. Patrick placed. Wound Cx:
Proteus mirabilis, E.coli, Klebsiella pneumoniae, E.faecalis Urology recommended to cont packing, US on 05/30/25 did not show signs of abscess. ID recommended to switch to Keflex/Linezolid for 7more days of treatment. Thrombocytosis evaluated by
hematology consult: repeat CBC in 4 weeks and hematology referral if still elevated. This was also discussed with brother Thien lott on the day of d/c. Medically stable to be d/c back to original facility
Patient was managed for:
#Suprapubic catheter tract infection with abdominal wall cellulitis and fistulous tract
#Neurogenic bladder
ID consult: Abx as per culture
Wound Cx: Proteus mirabilis, E.coli, Klebsiella pneumoniae, E.faecalis
Urology consult: cont packing
Patrick in
Bcx NTD
US on 05/30/25 did not show signs of abscess
#Stercoral colitis
has daily BM
on Abx
laxatives
#transaminitis
#Elevated alk.phos
no RUQ pain
US RUQ: Several moderate-sized gallstones. No secondary findings to suggest acute cholecystitis. CBD 5mm.
hepatitis panel neg
GGT elevated
Most likely Abx-induced elevation. With minimal elevation less then 3x normal - will monitor
#MS
not in flare
receives an infusion at [facility] every six months
#Cognitive impairment
no further mgmt
#chronic b/l LE lymphedema
#essential HTN
cont Bumex
#Thrombocytosis
hematology consult: repeat CBC in 4 weeks and hematology referral if still elevated
#Left buttock with stage 1 PI vs shearing, non blanchable patch of redness
#Left ischium with healed ulcer now pale scar
#L inner buttock with stage 2 PI vs MASD
Wound care
DVT ppx lovenox
Full code
I have spent at [facility] 51min reviewing chart, test results, communication with consultants and providing direct patient care
Anticipated Discharge: Today
Subjective/Interval History
-
Date of Service: June 01, 2025
Objective Data
-
Labs:
Laboratory Results
06/01/25
07:40
WBC 7.1
Hgb 13.4
Hct 41.4
Plt Count 657 H
Sodium 136
Potassium 4.3
Chloride 100
Carbon Dioxide 29
BUN 25 H
Creatinine 0.9
Glucose 99
Calcium 9.5
Total Bilirubin 0.5
AST 40 H
ALT 51 H
Alkaline Phosphatase 131 H
Vital Signs:
Vital Signs
Temp Pulse Resp BP Pulse Ox
97.8 F 84 16 143/82 100
06/01/25 07:17 06/01/25 07:19 06/01/25 07:17 06/01/25 07:19 06/01/25 07:17
I&O
05/31/25 06/01/25 06/02/25
06:59 06:59 06:59
Intake Total 1200 / 1200 1575 / 1575
Output Total 1950 / 1950 1575 / 1575
Balance -750 / -750 0 / 0
Review of Systems
-
History Source: Patient
All other systems: Reviewed and negative
Physical Exam
-
General: No Apparent Distress
HEENT: Normocephalic
Neuro: Awake, Alert, Oriented and AO x 3
Psych: Calm
--- NOTE | 2025-06-01 11:42 | W.DCSUMMARY ---
Discharge Summary
Discharge Data
Date of Admission: 05/24/25
Date of Discharge: 06/01/25
-
Pending Results: No
Hospital Course
60yo F with PMHX of NPH, CHF, HTN, MS, cognitive impairment, neurogenic bladder dysfunction s/p suprapubic catheter came with redness around catheter site, found abd wall cellulitis with fistulous tract and stercoral colitis. Patrick placed. Wound Cx:
Proteus mirabilis, E.coli, Klebsiella pneumoniae, E.faecalis Urology recommended to cont packing, US on 05/30/25 did not show signs of abscess. ID recommended to switch to Keflex/Linezolid for 7more days of treatment. Thrombocytosis evaluated by
hematology consult: repeat CBC in 4 weeks and hematology referral if still elevated. LFT needs to be rechecked in 1 week, however no further elevation noted. This was also discussed with brother Thien kaylie on the day of d/c. Medically stable to
be d/c back to original facility
I have spent at least 36 min reviewing chart, test results, communication with consultants, family and providing direct patient care
Patient was managed for:
#Suprapubic catheter tract infection with abdominal wall cellulitis and fistulous tract
#Neurogenic bladder
#Stercoral colitis
#transaminitis
#Elevated alk.phos
#MS
#Cognitive impairment
#chronic b/l LE lymphedema
#essential HTN
#Thrombocytosis
#Left buttock with stage 1 PI vs shearing, non blanchable patch of redness
#Left ischium with healed ulcer now pale scar
#L inner buttock with stage 2 PI vs MASD
Discharge Plan
-
Patient Disposition: Correction/SNF
Discharge Diagnosis/Procedures: Cellulitis
Diet: Regular
Blood Work: repeat CBC in 2-3 weeks, follow with [facility] [employer] [facility] [employer] if still thrombocytosis. Recheck LFT in 1 week
Activity Restrictions/Additional Instructions:
Wound Care Instructions
abdomen: clean with saline, Saline moistened gauze or nilo packed into wound, folded dry gauze then silicone foam. Daily dressing changes and prn drainage.
L buttock and inner buttock: clean with soap and water, skin prep periwounds then apply Exuderm thin, change q 3 days and prn soilage. If does not stay can use barrier cream daily and prn soilage
Follow up at wound care center call for an appointment.
Referrals:
Schuyler Cisneros MD [Active, Urology] - in two to three weeks
Jose Owusu MD [Family Provider]
Alexis Shelton MD [Active, Hematology / Oncology] - in two to four weeks
Referral Note: for CBC - thrombocytosis follow up
Prescriptions:
New
cephalexin 500 mg Capsule
500 mg PO QID Qty: 24 0RF
linezolid 600 mg Tablet
600 mg PO BID Qty: 12 0RF
Continued
loperamide 2 mg Capsule
2 mg PO Q8HPRN PRN (Reason: diarrhea)
magnesium hydroxide [Milk of Magnesia] 400 mg/5 mL Suspension
30 ml PO [id number] PRN (Reason: constipation)
Rx Instructions:
if no BM for 3 days
bisacodyl [Dulcolax (bisacodyl)] 10 mg Suppository
10 mg AK DAILYPRN PRN (Reason: constipation)
Rx Instructions:
If milk of magnesia is ineffective
Fleet Enema 19-7 gram/118 mL Enema
118 ml AK DAILYPRN PRN (Reason: constipation)
Rx Instructions:
If dulcolax ineffective
bumetanide 1 mg Tablet
2 mg PO DAILY
Senna Plus 8.6-50 mg Capsule
1 tab-cap PO BIDPRN PRN (Reason: constipation)
acetaminophen [Tylenol] 325 mg Tablet
650 mg PO Q6HPRN PRN (Reason: mild pain)
Saccharomyces boulardii [Florastor] 250 mg Capsule
250 mg PO DAILY
potassium chloride 20 mEq Tablet Extended Release
20 meq PO QPM
Discontinued
cefpodoxime 100 mg Tablet
100 mg PO BID
Rx Instructions:
for 7 days ending on 05/28/25
Discharge Orders:
Discharge Patient (As Directed); Ordered 06/01/25
Ordered By: Landon Cavazos
Discharge Date and Time
Print Language: AFGHAN
--- NOTE | 2025-06-01 13:22 | CM ---
entered order for discharge.
Spoke with Emilie Ramingham Bed is ready
Requested ambulance Medical [facility] form completed.
Spoke with Dewayne dialloer [phone] he is in agreement with dc to SNF today .
[facility]
Report: [phone]

PLAN Return to [facility] today
[2025-06-01 15:45] VITALS: BP 132/67
== END 2025-06-01 16:53 | DRG 698 ==
LOC: 4 WEST ACU 15:19
PROVIDERS: Emergency Medicine; Hospitalist; Internal Medicine Infectious Disease; Physician Assistant Medical; Registered Nurse; ADMITTING PHYSICIAN Hospitalist; ATTENDING PHYSICIAN Internal Medicine; CONSULT PHYSICIAN Internal Medicine Hematology & Oncology; CONSULT PHYSICIAN Specialist; EMERGENCY PHYSICIAN Emergency Medicine; FAMILY PHYSICIAN Internal Medicine; OTHER PHYSICIAN Internal Medicine Infectious Disease
DX: T83.510A Infection and inflammatory reaction due to cystostomy catheter, initial encounter (principal); A41.9 Sepsis, unspecified organism; G91.2 (Idiopathic) normal pressure hydrocephalus; L03.311 Cellulitis of abdominal wall; L02.211 Cutaneous abscess of abdominal wall; N99.521 Infection of incontinent external stoma of urinary tract; Y84.6 Urinary catheterization as the cause of abnormal reaction of the patient, or of later complication, without mention of misadventure at the time of the procedure; Y92.129 Unspecified place in nursing home as the place of occurrence of the external cause; Y73.2 Prosthetic and other implants, materials and accessory gastroenterology and urology devices associated with adverse incidents; G35 Multiple sclerosis; I50.9 Heart failure, unspecified; I11.0 Hypertensive heart disease with heart failure; E87.6 Hypokalemia; N31.9 Neuromuscular dysfunction of bladder, unspecified; I89.0 Lymphedema, not elsewhere classified; B96.4 Proteus (mirabilis) (morganii) as the cause of diseases classified elsewhere; B96.20 Unspecified Escherichia coli [E. coli] as the cause of diseases classified elsewhere; B95.2 Enterococcus as the cause of diseases classified elsewhere; R74.01 Elevation of levels of liver transaminase levels; R74.8 Abnormal levels of other serum enzymes; B96.1 Klebsiella pneumoniae [K. pneumoniae] as the cause of diseases classified elsewhere; L89.321 Pressure ulcer of left buttock, stage 1; K52.89 Other specified noninfective gastroenteritis and colitis; L89.322 Pressure ulcer of left buttock, stage 2; D75.839 Thrombocytosis, unspecified; R41.89 Other symptoms and signs involving cognitive functions and awareness; E66.09 Other obesity due to excess calories; Z68.32 Body mass index [BMI] 32.0-32.9, adult; Z88.0 Allergy status to penicillin
CPT/HCPCS: 72193; 76700; 76705; 80048; 80053; 80202; 81003; 81015; 82728; 82977; 83036; 83540; 83550; 83735; 84484; 85025; 85027; 86704; 86706; 86803; 87040; 87070; 87077; 87086; 87186; 87205; 87340; 96365; 96366; 97163; 99285; Q9967

== ENCOUNTER 2025-07-09 06:09 | Day surgery (SDC) | payer MEDICARE, OTHER, SELFPAY ==
--- NOTE | 2025-07-02 15:36 | PTCARENOTE ---
Patients 06/01 ayde- 657- Roico @ Dr. Jean office notified
[2025-07-09] VITALS (8 sets, daily range): BP systolic 100–120; BP diastolic 68–78; BMI 36.2
[2025-07-09] MEDS: VANCOCIN 530 MG IV (12:09)
[2025-07-09] MEDS: NORMOSOL-R/PLASMALYTE-A 1000 IV (12:10)
== END 2025-07-09 15:57 ==
LOC: SDS 06:09
PROVIDERS: ATTENDING PHYSICIAN Urology
DX: N31.9 Neuromuscular dysfunction of bladder, unspecified (principal)
CPT/HCPCS: 51040; 93005